=== PATIENT | female | born 1945 | race African-American/Black ===

== ENCOUNTER 2017-07-29 07:58 | Outpatient (CLI) | payer MEDICARE, OTHER ==
[2017-07-29 10:48] LABS: Bilirubin Negative (Negative); Blood, Urine Negative (Negative); Clarity CLOUDY (Clear); Glucose, Urine (Dipstick) Negative (Negative); Leukocyte Moderate (Negative); Nitrite Positive (Negative); Protein, Urine (Dipstick) Trace mg/dL (Neg-Trace); Specific Gravity, Urine 1.016 (1.002-1.036)
[2017-07-29 10:52] LABS: Bacteria/HPF 2+ HPF (None Seen); Hyaline Casts/LPF 0-3 HYALINE CAST LPF (0-3 Hyaline); Pathc Cast-AUWi Flag 0.29 (0-2.49); RBC/HPF 0-3 HPF (0-3); Yeast-AUWi Flag 18.7 (0-25.0)
[2017-07-29 11:13] LABS: Renal Epithelial 0-3 HPF (0-3)
[2017-07-29 11:14] LABS: Crystals/HPF None Seen HPF (Negative); Oval Fat Bodies/HPF None Seen HPF (None Seen); Trichomonas/HPF None Seen HPF (None Seen)
--- NOTE | 2017-07-29 18:36 | RAD ---
TWO VIEWS OF THE CHEST 07/29/17 COMPARISON: 04/30/07 HISTORY: Preoperative patient. FINDINGS: Increased linear interstitial densities are noted, stable. Stable midline sternotomy wires and medias tinal clips. Stable multilead AICD. There is elevation of the left hemidiaphragm laterally with blunt ing of the left costophrenic angle and pleural thickening, stable. Lungs appear hyperinflated. No acu te findings. IMPRESSION: Numerous chronic findings as detailed above, including interstitial prominence and pulmonary hyperinf lation suggesting COPD in the proper clinical setting. POS: JOVANY
--- NOTE | 2017-07-30 07:21 | EKG ---
Test Reason : Blood Pressure : / mmHG Vent. Rate : 062 BPM Atrial Rate : 062 BPM P-R Int : 104 ms QRS Dur : 144 ms QT Int : 464 ms P-R-T Axes : -07 025 002 degrees QTc Int : 470 ms AV sequential or dual chamber electronic pacemaker Nonspecific ST-T changes Abnormal ECG When compared with ECG of 18-FEB-2015 11:49, Vent. rate has decreased BY [address] Stephanie WATERMAN ([id number]) on 07/30/2017 7:20:58 AM Referred By: ZENAIDA Confirmed By:DR. Stephanie WATERMAN
== END 2017-07-29 07:59 | disposition home or self-care (01) ==
LOC: LABBT 07:58
PROVIDERS: ATTEND Orthopaedic Surgery
DX: Z01.818 Encounter for other preprocedural examination (principal); M16.11 Unilateral primary osteoarthritis, right hip
CPT/HCPCS: 71046; 81001; 87081; 93005; 93010

== ENCOUNTER 2017-08-05 10:01 | Outpatient (CLI) | payer MEDICARE, MEDICAID ==
[2017-08-05 11:03] LABS: #Basophils 0.1 thou/uL (0.0-0.2); #Eosinphils 0.6 thou/uL (0.0-0.7); #Lymphocytes 2.9 thou/uL (1.20-3.40); #Monocytes 0.5 thou/uL (0.11-0.59); #Neutrophils 6.9 thou/uL (1.40-6.50); %Basophils 0.7 % (0.0-1.0); %Eosinophils 5.2 % (0.0-10.0); %Lymphocytes 26.6 % (21.0-51.0); %Monocytes 4.9 % (0.0-10.0); %Neutrophils 62.6 % (42.0-75.0); Hemoglobin 14.1 g/dL (12.0-16.0); Mean Corpuscular HGB CONC 32.9 g/dL (32.0-36.0); Mean Corpuscular Hemoglobin 32.9 pg (27.0-31.0); Mean Corpuscular Volume 99.9 fl (81.0-99.0); Mean Platelet Volume 7.9 fL (7.4-10.4); Platelet Count 187 thou/uL (130-400); RBC Distribution Width 13.6 % (11.5-14.5); Red Blood Cell (RBC) Count 4.28 mill/uL (4.20-5.40)
[2017-08-05 11:12] LABS: Anion Gap 9 mmol/L (10-20); BUN (Urea Nitrogen) 14 mg/dL (9.8-20.1); Calc. Creatinine Clearance 0 mL/min (70-130); Calcium 9.2 mg/dL (7.8-10.44); Carbon Dioxide 28 mmol/L (23-31); Chloride 107 mmol/L (98-107); Estimated GFR-MDRD 70; Glucose 103 mg/dL (80-115); Sodium 140 mmol/L (136-145)
[2017-08-05 11:16] LABS: Prothrombin Time 13.7 SEC (12.0-14.7)
== END 2017-08-05 10:02 | disposition home or self-care (01) ==
LOC: LABBT 10:01
PROVIDERS: ATTEND Orthopaedic Surgery
DX: Z01.812 Encounter for preprocedural laboratory examination (principal); M16.11 Unilateral primary osteoarthritis, right hip
CPT/HCPCS: 80048; 85025; 85610; 85730; 86850; 86900; 86901

== ENCOUNTER 2017-12-23 12:07 | Outpatient (CLI) | payer MEDICARE, OTHER ==
[2017-12-23 13:16] LABS: #Basophils 0.1 thou/uL (0.0-0.2); #Eosinphils 1.7 thou/uL (0.0-0.7); #Lymphocytes 2.9 thou/uL (1.20-3.40); #Monocytes 0.6 thou/uL (0.11-0.59); #Neutrophils 6.6 thou/uL (1.40-6.50); %Basophils 0.7 % (0.0-1.0); %Eosinophils 14.5 % (0.0-10.0); %Lymphocytes 24.7 % (21.0-51.0); %Monocytes 4.6 % (0.0-10.0); %Neutrophils 55.6 % (42.0-75.0); Hemoglobin 13.6 g/dL (12.0-16.0); Mean Corpuscular HGB CONC 31.6 g/dL (32.0-36.0); Mean Platelet Volume 7.2 fL (7.4-10.4); Platelet Count 193 thou/uL (130-400); RBC Distribution Width 12.9 % (11.5-14.5); Red Blood Cell (RBC) Count 4.25 mill/uL (4.20-5.40); White Blood Cell (WBC) Count 11.9 thou/uL (4.8-10.8)
[2017-12-23 13:35] LABS: ALT (SGPT) 7 U/L (8-55); AST (SGOT) 12 U/L (5-34); Albumin 4.1 g/dL (3.4-4.8); Alkaline Phosphatase 85 U/L (40-150); Anion Gap 9 mmol/L (10-20); BUN (Urea Nitrogen) 12 mg/dL (9.8-20.1); Bilirubin, Direct 0.3 mg/dL (0.1-0.3); Bilirubin, Total 0.7 mg/dL (0.2-1.2); Calc. Creatinine Clearance 0 mL/min (70-130); Calcium 9.5 mg/dL (7.8-10.44); Carbon Dioxide 26 mmol/L (23-31); Chloride 110 mmol/L (98-107); Estimated GFR-MDRD 64; Globulin 3.2 g/dL (2.4-3.5); Glucose 121 mg/dL (80-115); Potassium 3.9 mmol/L (3.5-5.1); Protein, Total 7.3 g/dL (6.0-8.3); Sodium 141 mmol/L (136-145)
--- NOTE | 2017-12-23 15:27 | EKG ---
Test Reason : Blood Pressure : / mmHG Vent. Rate : 070 BPM Atrial Rate : 070 BPM P-R Int : 100 ms QRS Dur : 140 ms QT Int : 432 ms P-R-T Axes : 077 061 078 degrees QTc Int : 466 ms Electronic ventricular pacemaker When compared with ECG of 29-JUL-2017 09:14, Vent. rate has increased BY 8 BPM Confirmed by MAURO PINA, DR. Lazo ([id number]) on 12/23/2017 3:26:51 PM Referred By: HUONG Confirmed By:DR. Violet WADE MD
== END 2017-12-23 12:08 | disposition home or self-care (01) ==
LOC: LABBT 12:07
PROVIDERS: ATTEND Internal Medicine Cardiovascular Disease
DX: Z01.818 Encounter for other preprocedural examination (principal); I25.10 Atherosclerotic heart disease of native coronary artery without angina pectoris
CPT/HCPCS: 80053; 80076; 85025; 93005; 93010

== ENCOUNTER 2017-12-28 06:48 | Inpatient (IN) | payer MEDICARE, MEDICAID ==
[2017-12-28] MEDS ORDERED: Diazepam 5 MG TAB ONE (07:34)
[2017-12-28] MEDS ORDERED: Lidocaine 1% (PF) 30 ML VIAL ONE (08:25)
[2017-12-28] MEDS ORDERED: Midazolam HCl 2 mg/2 ml Vial ONE (08:46)
[2017-12-28] MEDS ORDERED: Fentanyl 100 MCG/2 ML VIAL ONE (08:46)
[2017-12-28] MEDS ORDERED: Iopamidol 370 76% 100 ML VIAL ONE (11:01)
[2017-12-28] MEDS ORDERED: Nitroglycerin 0.4 MG TAB (25 Tab Bottle) SL PRN (11:30)
[2017-12-28] MEDS ORDERED: Sodium Chloride 0.9% 1,000 ML IV SCH (11:30)
[2017-12-28] MEDS ORDERED: traMADol HCl 50 MG TAB PO PRN (11:30)
--- NOTE | 2017-12-28 12:01 | CON ---
DATE OF CONSULTATION: 12/28/2017 HISTORY OF PRESENT ILLNESS: This is a 71-year-old female that underwent coronary bypass grafting in 2000 for coronary artery disease with grafts to the right posterior lateral with saphenous vein, obtu se marginal with saphenous vein, ramus with radial and LAD with PETE. Postoperative course was compl icated by bilateral pneumothoraces and prolonged air leaks, ultimately being discharged on about pos toperative day 15. She has done well over the years and been followed along, although recently had a n abnormal PET scan in preparation for right hip surgery. The patient denies any significant dyspnea on exertion, although is not very active due to her hip problems. She denies any chest pain, althou gh occasionally gets heartburn. Cardiac catheterization today showed an occluded or atretic PETE jesica t was barely patent with no significant filling of the LAD system. The LAD had a high grade stenosis at its takeoff from the distal left main as well as significant disease at the takeoff of a diagonal . The diagonal was not large enough to graft. Circumflex system was fed by the radial and saphenous vein grafts with the radial feeding a small artery and the saphenous vein feeding a very small obtus e marginal. Right system was felt to be at the vein graft. LV systolic function appeared to be rela tively normal. PAST SURGICAL HISTORY: Otherwise placement of a defibrillator about 7-8 years ago by her account. S he has had a left hip replacement as well as cataract surgery. SOCIAL HISTORY: She has not smoked since 2000. PAST MEDICAL HISTORY: Otherwise includes diabetes, hypertension and dyslipidemia. MEDICATIONS: Inhalers and p.r.n. oxygen at home as well as aspirin 1 a day, lisinopril b.i.d., Lasix 20 mg a day, Crestor 20 a day, Coreg 6.25 b.i.d. and hydralazine 25 t.i.d. as well as isosorbide 30 a day. PHYSICAL EXAMINATION: GENERAL: She is an alert, cooperative lady, height 62 inches, weight 139 pounds. NECK: No carotid bruits. LUNGS: No wheezes. CARDIAC: Distant heart sounds, no murmurs. ABDOMEN: Soft, nontender. EXTREMITIES: She has a palpable pedal pulse in both feet with no peripheral edema. PLAN: At this time with a lean toward percutaneous intervention for her LAD disease given the fact t hat she has 3 patent grafts, although the distal vessels are rather poor.
[2017-12-28] MEDS ORDERED: Ipratropium Bromide 2.5 ml Neb NEB SCH (13:00)
[2017-12-28 13:11] VITALS: BMI 26.1
--- NOTE | 2017-12-28 14:20 | CON ---
DATE OF CONSULTATION: 12/28/2017 HISTORY OF PRESENT ILLNESS: The patient is a 72-year-old woman with a history of coronary artery disease who presented with increasing weakness. The patient has a long history of coronary artery disease. In 2001 she underwent a cardiac catheterization. The patient subsequently was found to have severe 3-vessel coronary artery disease. The patient underwent coronary bypass surgery x4. A PETE was placed to the LAD, a saphenous vein graft to the posterior descending artery and to obtuse marginal branch. The patient also has a history of a cardiomyopathy. She has had placement of a biventricular AICD. The patient was in her usual state of health when she started feeling weak. She underwent a cardiac PET scan which revealed severe ischemia. The patient was admitted for further evaluation. The patient denies having any chest discomfort. PAST MEDICAL HISTORY: 1. Coronary artery disease. 2. Cardiomyopathy. 3. Hypertension. 4. Diabetes mellitus. 5. Hyperlipidemia. PAST SURGICAL HISTORY: Coronary bypass surgery, tubal ligation, and cataract surgery. ALLERGIES: CODEINE. MEDICATIONS: Hydralazine 25 t.i.d., Coreg 6.25 b.i.d., Crestor 20 at bedtime, Lasix 20 daily, lisinopril 10 b.i.d., aspirin 81 daily, and Imdur 30 q.a.m. PHYSICAL EXAMINATION: GENERAL: This is a well-developed woman in no acute distress. VITAL SIGNS: Blood pressure was 164/69. NECK: Showed no jugular distention, no carotid bruits. LUNGS: Clear to auscultation. HEART: Regular rate and rhythm, normal S1, S2, 1/6 systolic murmur. ABDOMEN: Nondistended. EXTREMITIES: Showed no edema. VASCULAR: Radial pulses 2+. LABORATORY DATA: Her white blood cell count was 11.9, hemoglobin 13.6, hematocrit 30.0, her platelets 193. Sodium 141, potassium 3.9, chloride 110, bicarbonate 26, BUN 12, creatinine 1.0, glucose 124. EKG revealed an electronic ventricular pacemaker. IMPRESSION: 1. Severe coronary artery disease. 2. History of coronary bypass surgery. 3. Ischemic cardiomyopathy. 4. History of AICD. 5. Hypertension. 6. Dyslipidemia. 7. Diabetes mellitus. 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 The patient is being admitted for possible transfer for a rotablader procedure or coronary bypass graft surgery. PLAN: 1. Admit to telemetry. 2. Transfer for possible high risk coronary intervention. RENE
[2017-12-28] MEDS ORDERED: hydrALAZINE 25 MG TAB PO SCH (15:00)
[2017-12-28 15:41] VITALS: BP 141/69; TEMP 98
[2017-12-28] MEDS ORDERED: Lisinopril 10 MG TAB PO SCH (21:00)
[2017-12-28] MEDS ORDERED: Rosuvastatin 20 MG TAB PO SCH (21:00)
[2017-12-28] MEDS ORDERED: Carvedilol 6.25 MG TAB PO SCH (21:00)
[2017-12-29] MEDS ORDERED: Fish Oil 1,000 MG CAP PO SCH (09:00)
[2017-12-29] MEDS ORDERED: Furosemide 20 MG TAB PO SCH (09:00)
== END 2017-12-28 19:20 | disposition short-term general hospital (02) | DRG 287 ==
LOC: CCL 06:48 → 2NO 12:12
PROVIDERS: ADMIT Internal Medicine Cardiovascular Disease; ATTEND Internal Medicine Cardiovascular Disease
PROC: 4A023N7 Measurement of Cardiac Sampling and Pressure, Left Heart, Percutaneous Approach (ICD-10-PCS; principal; 2017-12-28)
PROC: B2111ZZ Fluoroscopy of Multiple Coronary Arteries using Low Osmolar Contrast (ICD-10-PCS; 2017-12-28)
DX: I25.10 Atherosclerotic heart disease of native coronary artery without angina pectoris (principal); I25.5 Ischemic cardiomyopathy; I10 Essential (primary) hypertension; Z95.1 Presence of aortocoronary bypass graft; E78.5 Hyperlipidemia, unspecified; E11.9 Type 2 diabetes mellitus without complications
CPT/HCPCS: 93459; 94640; 99152; C1769; J1644; J2001; J2250; J3010; J7644

== ENCOUNTER 2018-07-12 09:08 | Outpatient (CLI) | payer MEDICARE, MEDICAID ==
--- NOTE | 2018-07-12 09:26 | RAD ---
Exam: Chest 2 views HISTORY:Dyspnea Comparison: 07/29/2016 FINDINGS: Lungs: Stable chronic left basilar density Cardiac silhouette:Stable postsurgical change. Left-sided AICD remains in place Pulmonary vessels: Mild prominence, similar in appearance Pleural Spaces: Pleural-based density at the inferior left chest with elevation left hemidiaphragm pe rsists Pneumothorax: None Osseous abnormalities: None of acuity. IMPRESSION: Stable chest
== END 2018-07-12 09:09 | disposition home or self-care (01) ==
LOC: RAD 09:08
PROVIDERS: ATTEND Internal Medicine Critical Care Medicine
DX: R06.00 Dyspnea, unspecified (principal)
CPT/HCPCS: 71046

== ENCOUNTER 2020-04-15 15:13 | Emergency (ER) | payer MEDICARE, OTHER ==
[~2020-04-15 15:13] MED LIST: Iopamidol-370 76% 500 ML 1 ML ONE
[2020-04-15] MEDS ORDERED: Labetalol HCl 100 MG/20 ML VIAL ONE (15:53)
[2020-04-15 15:59] LABS: #Eosinphils 0.1 thou/uL (0.0-0.7); #Lymphocytes 1.6 thou/uL (1.20-3.40); #Monocytes 0.3 thou/uL (0.11-0.59); #Neutrophils 6.9 thou/uL (1.40-6.50); %Basophils 0.4 % (0.0-1.0); %Eosinophils 1.3 % (0.0-10.0); %Lymphocytes 18.3 % (21.0-51.0); %Monocytes 3.1 % (0.0-10.0); Hemoglobin 13.9 g/dL (12.0-16.0); Mean Corpuscular HGB CONC 32.5 g/dL (32.0-36.0); Mean Corpuscular Hemoglobin 33.1 pg (27.0-31.0); Mean Platelet Volume 7.9 fL (7.4-10.4); Platelet Count 189 thou/uL (130-400); Red Blood Cell (RBC) Count 4.21 mill/uL (4.20-5.40); White Blood Cell (WBC) Count 8.9 thou/uL (4.8-10.8)
[2020-04-15 16:18] LABS: ALT (SGPT) 13 U/L (8-55); AST (SGOT) 18 U/L (5-34); Albumin 4.2 g/dL (3.4-4.8); Alkaline Phosphatase 73 U/L (40-110); Anion Gap 14 mmol/L (10-20); BUN (Urea Nitrogen) 10 mg/dL (9.8-20.1); Bilirubin, Total 0.5 mg/dL (0.2-1.2); Calc. Creatinine Clearance 0 mL/min (70-130); Calcium 9.3 mg/dL (7.8-10.44); Carbon Dioxide 23 mmol/L (23-31); Chloride 108 mmol/L (98-107); Globulin 3.4 g/dL (2.4-3.5); Glucose 146 mg/dL (83-110); Lipase 77 U/L (8-78); Protein, Total 7.6 g/dL (6.0-8.3); Sodium 141 mmol/L (136-145)
--- NOTE | 2020-04-15 17:00 | CT ---
CT abdomen and pelvis with IV contrast HISTORY: Abdomen pain. Nausea vomiting. FINDINGS: Calcified granulomata in mild nonspecific interstitial thickening noted at the lung bases. A 2.4 cm low-density cystic lesion noted at the superior margin of the spleen. Possibly hemangioma. A 1.2 cm cyst is present within the posterior segment right liver lobe. A 6.1 cm partially exophytic cyst projects superiorly from the left renal cortex. Smaller cysts involve the cortex of each kidney. There is minimal distention of the pancreatic duct. At the posterior aspect of the pancreatic body is a subtle, somewhat lobular hypodense area with the appearance of a very subtle mass. It is 1.8 cm x 1.6 cm x 1.3 cm greatest diameters. Hyperdense stones are present within the dependent portion of the gallbladder lumen. Prominent calcification within the arterial structures. Very small amount of fluid within the dependent portion of the pelvis. Cause is not evident. Very lar ge amount of stool within the right colon. Appendix is not visualized. Left hip prosthesis. Prominent degenerative changes right hip and lumbar spine. IMPRESSION : Subtle low-density lesion of the pancreatic body. Further evaluation warranted. With a pacemaker, pat ient would be unable to undergo an MRI. Please consider short-term follow-up outpatient CT pancreas without and with IV contrast for better characterization. Constipation. No evidence of bowel obstruction. Atherosclerosis.
== END 2020-04-15 17:30 | disposition home or self-care (01) ==
LOC: ERS 15:13
DX: K86.89 Other specified diseases of pancreas (principal); R11.2 Nausea with vomiting, unspecified; E11.9 Type 2 diabetes mellitus without complications; I11.0 Hypertensive heart disease with heart failure; I50.9 Heart failure, unspecified; E78.5 Hyperlipidemia, unspecified; E78.00 Pure hypercholesterolemia, unspecified; J45.909 Unspecified asthma, uncomplicated; Z79.899 Other long term (current) drug therapy; Z86.73 Personal history of transient ischemic attack (TIA), and cerebral infarction without residual deficits
CPT/HCPCS: 74177; 80053; 83690; 85025; 93005; 96374; Q9967

== ENCOUNTER 2020-12-02 14:19 | Emergency (ER) | payer MEDICARE, OTHER ==
[2020-12-02] MEDS ORDERED: Mag-Al 1200 mg/1200 mg/30 ML UDCUP ONE (14:58)
[2020-12-02] MEDS ORDERED: Famotidine/PF 20 mg/2ml Vial ONE (14:58)
[2020-12-02] MEDS ORDERED: Lidocaine Viscous Sol 2% 15 ml UD Cup ONE (14:58)
[2020-12-02] MEDS ORDERED: Ondansetron PF 4 MG/2 ML Vial ONE (15:04)
[2020-12-02 15:29] LABS: #Basophils 0.1 thou/uL (0.0-0.2); #Eosinphils 0.2 thou/uL (0.0-0.7); #Lymphocytes 2.6 thou/uL (1.20-3.40); #Monocytes 0.5 thou/uL (0.11-0.59); #Neutrophils 7.5 thou/uL (1.40-6.50); %Basophils 0.6 % (0.0-1.0); %Eosinophils 1.8 % (0.0-10.0); %Lymphocytes 23.7 % (21.0-51.0); %Monocytes 4.4 % (0.0-10.0); %Neutrophils 69.5 % (42.0-75.0); Hemoglobin 13.6 g/dL (12.0-16.0); Mean Corpuscular HGB CONC 33.4 g/dL (32.0-36.0); Mean Corpuscular Hemoglobin 33.9 pg (27.0-31.0); Mean Platelet Volume 8.1 fL (7.4-10.4); Platelet Count 161 thou/uL (130-400); RBC Distribution Width 13.6 % (11.5-14.5); White Blood Cell (WBC) Count 10.8 thou/uL (4.8-10.8)
[2020-12-02 15:52] LABS: ALT (SGPT) 10 U/L (8-55); AST (SGOT) 15 U/L (5-34); Albumin 3.9 g/dL (3.4-4.8); Alkaline Phosphatase 69 U/L (40-110); Anion Gap 12 mmol/L (10-20); BUN (Urea Nitrogen) 13 mg/dL (9.8-20.1); Bilirubin, Total 0.5 mg/dL (0.2-1.2); Calc. Creatinine Clearance 0 mL/min (70-130); Calcium 9.7 mg/dL (7.8-10.44); Carbon Dioxide 23 mmol/L (23-31); Chloride 109 mmol/L (98-107); Globulin 3.1 g/dL (2.4-3.5); Glucose 142 mg/dL (83-110); Lipase 192 U/L (8-78); Potassium 3.8 mmol/L (3.5-5.1); Sodium 140 mmol/L (136-145)
[2020-12-02] MEDS ORDERED: Fentanyl 100 MCG/2 ML VIAL ONE (16:13)
== END 2020-12-02 18:00 | disposition home or self-care (01) ==
LOC: ERS 14:19
DX: K27.9 Peptic ulcer, site unspecified, unspecified as acute or chronic, without hemorrhage or perforation (principal); K86.2 Cyst of pancreas; I11.0 Hypertensive heart disease with heart failure; I50.9 Heart failure, unspecified; E11.9 Type 2 diabetes mellitus without complications; E78.00 Pure hypercholesterolemia, unspecified; E78.5 Hyperlipidemia, unspecified; J45.909 Unspecified asthma, uncomplicated; Z86.73 Personal history of transient ischemic attack (TIA), and cerebral infarction without residual deficits; Z79.899 Other long term (current) drug therapy
CPT/HCPCS: 36415; 71045; 74177; 80053; 83605; 83690; 84484; 85025; 93005; 96374; 96375; J2405; J3010; Q9967; S0028

== ENCOUNTER 2021-01-19 18:36 | Emergency (ER) | payer MEDICARE, OTHER ==
[2021-01-19] MEDS ORDERED: methylPREDNISolone Sod Succ/PF 125 MG/2 ML VIAL ONE (20:42)
== END 2021-01-19 23:00 | disposition home or self-care (01) ==
LOC: ERS 18:36
DX: J45.901 Unspecified asthma with (acute) exacerbation (principal); E78.5 Hyperlipidemia, unspecified; I11.0 Hypertensive heart disease with heart failure; I50.9 Heart failure, unspecified; E11.9 Type 2 diabetes mellitus without complications; Z79.899 Other long term (current) drug therapy
CPT/HCPCS: 71045; 94640; 96372; J2930; J7620

== ENCOUNTER 2021-02-25 06:09 | Emergency (ER) | payer MEDICARE, OTHER ==
[2021-02-25] MEDS ORDERED: Albuterol 200 PUFF (6.7GM INHALER) ONE (06:22)
[2021-02-25 07:05] LABS: #Basophils 0.1 thou/uL (0.0-0.2); #Eosinphils 0.8 thou/uL (0.0-0.7); #Monocytes 0.6 thou/uL (0.11-0.59); #Neutrophils 8.5 thou/uL (1.40-6.50); %Basophils 0.7 % (0.0-1.0); %Eosinophils 6.3 % (0.0-10.0); %Lymphocytes 23.2 % (21.0-51.0); %Monocytes 4.8 % (0.0-10.0); Hemoglobin 13.9 g/dL (12.0-16.0); Mean Corpuscular HGB CONC 32.7 g/dL (32.0-36.0); Mean Corpuscular Hemoglobin 33.6 pg (27.0-31.0); Mean Platelet Volume 7.5 fL (7.4-10.4); Platelet Count 179 thou/uL (130-400); RBC Distribution Width 13.5 % (11.5-14.5); Red Blood Cell (RBC) Count 4.14 mill/uL (4.20-5.40); White Blood Cell (WBC) Count 13.1 thou/uL (4.8-10.8)
[2021-02-25 07:29] LABS: ALT (SGPT) 9 U/L (8-55); AST (SGOT) 16 U/L (5-34); Albumin 3.7 g/dL (3.4-4.8); Alkaline Phosphatase 67 U/L (40-110); Anion Gap 14 mmol/L (10-20); BUN (Urea Nitrogen) 11 mg/dL (9.8-20.1); Bilirubin, Total 0.5 mg/dL (0.2-1.2); Calc. Creatinine Clearance 0 mL/min (70-130); Calcium 8.8 mg/dL (7.8-10.44); Carbon Dioxide 20 mmol/L (23-31); Chloride 111 mmol/L (98-107); Globulin 2.7 g/dL (2.4-3.5); Glucose 108 mg/dL (83-110); Potassium 3.7 mmol/L (3.5-5.1); Protein, Total 6.4 g/dL (5.8-8.1); Sodium 141 mmol/L (136-145)
== END 2021-02-25 08:04 | disposition home or self-care (01) ==
LOC: ERS 06:09
DX: J45.901 Unspecified asthma with (acute) exacerbation (principal); I11.0 Hypertensive heart disease with heart failure; I50.9 Heart failure, unspecified; Z86.73 Personal history of transient ischemic attack (TIA), and cerebral infarction without residual deficits; E11.9 Type 2 diabetes mellitus without complications; E78.5 Hyperlipidemia, unspecified; Z79.899 Other long term (current) drug therapy
CPT/HCPCS: 36415; 71045; 80053; 83880; 84484; 85025; 93005

== ENCOUNTER 2021-04-18 09:24 | Outpatient (CLI) | payer MEDICARE, OTHER | END 2021-04-18 09:25 | disposition home or self-care (01) | LOC: RAD 09:24 | PROVIDERS: ATTEND Internal Medicine Critical Care Medicine | DX: R06.00 Dyspnea, unspecified (principal) | CPT/HCPCS: 71046 ==

== ENCOUNTER 2022-02-05 10:04 | Outpatient (CLI) | payer MEDICARE, OTHER | END 2022-02-05 10:05 | disposition home or self-care (01) | LOC: RAD 10:04 | PROVIDERS: ATTEND Internal Medicine Critical Care Medicine | DX: R06.00 Dyspnea, unspecified (principal) | CPT/HCPCS: 71046 ==

== ENCOUNTER 2022-02-11 01:45 | Inpatient (IN) | payer OTHER ==
[2022-02-11] MEDS ORDERED: Magnesium 2 GM/50 ML BAG (IN WATER) ONE (02:03)
[2022-02-11 02:31] LABS: #Eosinphils 0.1 thou/uL (0.0-0.7); #Lymphocytes 2.1 thou/uL (1.20-3.40); #Monocytes 0.4 thou/uL (0.11-0.59); #Neutrophils 8.4 thou/uL (1.40-6.50); %Basophils 0.4 % (0.0-1.0); %Monocytes 3.7 % (0.0-10.0); %Neutrophils 75.9 % (42.0-75.0); Hemoglobin 14.2 g/dL (12.0-16.0); Mean Corpuscular HGB CONC 32.6 g/dL (32.0-36.0); Mean Corpuscular Hemoglobin 33.7 pg (27.0-31.0); Mean Platelet Volume 8.9 fL (7.4-10.4); Platelet Count 153 10x3/uL (130-400); RBC Distribution Width 13.4 % (11.5-14.5); Red Blood Cell (RBC) Count 4.22 mill/uL (4.20-5.40); White Blood Cell (WBC) Count 11.1 10x3/uL (4.8-10.8)
[2022-02-11 02:50] LABS: ALT (SGPT) 37 U/L (8-55); AST (SGOT) 58 U/L (5-34); Albumin 3.3 g/dL (3.4-4.8); Alkaline Phosphatase 53 U/L (40-110); Anion Gap 18 mmol/L (10-20); BUN (Urea Nitrogen) 30 mg/dL (9.8-20.1); Bilirubin, Total 1.2 mg/dL (0.2-1.2); Calc. Creatinine Clearance 0 mL/min (70-130); Calcium 8.2 mg/dL (7.8-10.44); Carbon Dioxide 21 mmol/L (23-31); Chloride 104 mmol/L (98-107); Estimated GFR 40; Globulin 2.8 g/dL (2.4-3.5); Glucose 148 mg/dL (83-110); Potassium 3.7 mmol/L (3.5-5.1); Protein, Total 6.1 g/dL (5.8-8.1); Sodium 139 mmol/L (136-145)
[2022-02-11] MEDS ORDERED: cefTRIAXone\\ROCEPHIN 1 GM VIAL ONE (02:54)
[2022-02-11] MEDS ORDERED: Ondansetron PF 4 MG/2 ML Vial IVP PRN (03:58)
[2022-02-11] MEDS ORDERED: Ondansetron ODT 4 MG TAB PO PRN (03:58)
[2022-02-11] MEDS ORDERED: Dextrose 5% in Water 1,000 ML IV PRN (03:58)
[2022-02-11] MEDS ORDERED: Dextrose 50% Abboject 50 ML SYRINGE SLOW IVP PRN (03:58)
[2022-02-11] MEDS ORDERED: Acetaminophen 325 MG TAB PO PRN (03:58)
[2022-02-11 05:15] VITALS: BMI 29.0
[2022-02-11 06:03] LABS: Magnesium 4.1 mg/dL (1.6-2.6)
[2022-02-11] MEDS: methylPREDNISolone Sod Succ 40 MG VIAL IVP SCH ×4 (06:18→23:12)
[2022-02-11] MEDS: Azithromycin 500 MG in Sodium Chloride 0.9% 250 ML 250 ML IVPB SCH (06:34)
[2022-02-11 07:41] LABS: SARS-CoV-2 NAA Rapid Test DETECTED (NotDetected)
[2022-02-11] MEDS ORDERED: FLU VACC QS2022-23(65YR UP)/PF 240 MCG/0.7 ML SYRINGE IM ONE (07:45)
[2022-02-11] MEDS ORDERED: Enoxaparin Sodium 30 MG/0.3 ML SYRINGE SC SCH (09:00)
[2022-02-11 11:02] LABS: Bacteria/HPF None Seen HPF (None Seen); Bilirubin Negative (Negative); Blood, Urine Trace (Negative); CAUTI Indications for Culture Immunosuppressed; Clarity Clear (Clear); Glucose, Urine (Dipstick) Normal (Negative); Ketone, Urine 10 mg/dL (Negative); Leukocyte 25 Leu/uL (Negative); Nitrite Negative (Negative); Protein, Urine (Dipstick) 100 mg/dL (Neg-Trace); RBC/HPF 0-3 HPF (0-3); Specific Gravity, Urine 1.034 (1.002-1.036); Urobilinogen Normal mg/dL (Less than 2)
[2022-02-11 11:03] LABS: Urine Culture Reflex Yes Yes
[2022-02-11 11:32] LABS: Legionella Urinary Ag Negative (Negative); Strep pneumo Urine Ag NEGATIVE (NEGATIVE)
[2022-02-11] MEDS: Ipratropium/Albuterol Sulfate 4 GM AER IH SCH ×4 (11:40→23:15)
[2022-02-11] MEDS: HumaLOG 300 UNITS/3 ML VIAL SC PRN ×2 (17:57→20:55)
[2022-02-11] MEDS ORDERED: REMDESIVIR 200 MG in Sodium Chloride 0.9% 250 ML 210 ML IV SCH (18:00)
[2022-02-11] MEDS: Rosuvastatin 20 MG TAB PO SCH (20:52)
[2022-02-11] MEDS: Carvedilol 6.25 MG TAB PO SCH (20:53)
[2022-02-11] MEDS: Lisinopril 10 MG TAB PO SCH (20:53)
[2022-02-11] MEDS: hydrALAZINE 25 MG TAB PO SCH (20:53)
[2022-02-12] MEDS: cefTRIAXone\\ROCEPHIN 1 GM in Sodium Chloride 0.9% 100 ML IVPB SCH (03:34)
[2022-02-12] MEDS: Ipratropium/Albuterol Sulfate 4 GM AER IH SCH ×6 (03:35→23:42)
[2022-02-12] MEDS: Azithromycin 500 MG in Sodium Chloride 0.9% 250 ML 250 ML IVPB SCH (06:16)
[2022-02-12] MEDS: methylPREDNISolone Sod Succ 40 MG VIAL IVP SCH ×2 (06:16→11:29)
[2022-02-12] MEDS: HumaLOG 300 UNITS/3 ML VIAL SC PRN ×2 (06:27→12:46)
[2022-02-12 07:16] LABS: #Lymphocytes 1.7 thou/uL (1.20-3.40); #Monocytes 0.5 thou/uL (0.11-0.59); #Neutrophils 10.9 thou/uL (1.40-6.50); %Lymphocytes 12.6 % (21.0-51.0); %Neutrophils 83.4 % (42.0-75.0); Hemoglobin 13.8 g/dL (12.0-16.0); Mean Corpuscular Hemoglobin 33.2 pg (27.0-31.0); Mean Platelet Volume 8.4 fL (7.4-10.4); Platelet Count 188 10x3/uL (130-400); RBC Distribution Width 13.1 % (11.5-14.5); Red Blood Cell (RBC) Count 4.17 mill/uL (4.20-5.40)
[2022-02-12 07:37] LABS: ALT (SGPT) 30 U/L (8-55); AST (SGOT) 27 U/L (5-34); Albumin 3.1 g/dL (3.4-4.8); Alkaline Phosphatase 51 U/L (40-110); Anion Gap 11 mmol/L (10-20); BUN (Urea Nitrogen) 24 mg/dL (9.8-20.1); Bilirubin, Total 0.4 mg/dL (0.2-1.2); Calc. Creatinine Clearance 51 mL/min (70-130); Calcium 8.2 mg/dL (7.8-10.44); Carbon Dioxide 25 mmol/L (23-31); Chloride 108 mmol/L (98-107); Estimated GFR 53; Glucose 199 mg/dL (83-110); Magnesium 2.5 mg/dL (1.6-2.6); Potassium 3.7 mmol/L (3.5-5.1); Protein, Total 6.1 g/dL (5.8-8.1); Sodium 140 mmol/L (136-145)
[2022-02-12] MEDS: Enoxaparin Sodium 40 MG/0.4 ML SYRINGE SC SCH (08:50)
[2022-02-12] MEDS: Furosemide 20 MG TAB PO SCH (08:51)
[2022-02-12] MEDS: hydrALAZINE 25 MG TAB PO SCH ×3 (08:51→19:56)
[2022-02-12] MEDS: Carvedilol 6.25 MG TAB PO SCH ×2 (08:51→19:56)
[2022-02-12] MEDS: Lisinopril 10 MG TAB PO SCH ×2 (08:52→19:56)
[2022-02-12] MEDS: REMDESIVIR 100 MG in Sodium Chloride 0.9% 250 ML 230 ML IV SCH (17:43)
[2022-02-12] MEDS: Rosuvastatin 20 MG TAB PO SCH (19:56)
[2022-02-13] MEDS: cefTRIAXone\\ROCEPHIN 1 GM in Sodium Chloride 0.9% 100 ML IVPB SCH (03:57)
[2022-02-13] MEDS: Ipratropium/Albuterol Sulfate 4 GM AER IH SCH ×6 (04:01→21:43)
[2022-02-13] MEDS: Azithromycin 500 MG in Sodium Chloride 0.9% 250 ML 250 ML IVPB SCH (05:16)
[2022-02-13] MEDS: Furosemide 20 MG TAB PO SCH (08:38)
[2022-02-13] MEDS: methylPREDNISolone Sod Succ 40 MG VIAL IVP SCH (08:38)
[2022-02-13] MEDS: Lisinopril 10 MG TAB PO SCH ×2 (08:38→19:46)
[2022-02-13] MEDS: Carvedilol 6.25 MG TAB PO SCH ×2 (08:38→19:46)
[2022-02-13] MEDS: hydrALAZINE 25 MG TAB PO SCH ×3 (08:38→19:46)
[2022-02-13] MEDS: Enoxaparin Sodium 40 MG/0.4 ML SYRINGE SC SCH (08:38)
[2022-02-13] MEDS: REMDESIVIR 100 MG in Sodium Chloride 0.9% 250 ML 230 ML IV SCH (17:03)
[2022-02-13] MEDS: HumaLOG 300 UNITS/3 ML VIAL SC PRN (19:41)
[2022-02-13] MEDS: Rosuvastatin 20 MG TAB PO SCH (19:46)
[2022-02-13] MEDS: Benzonatate 100 MG CAP PO PRN (19:54)
[2022-02-14] MEDS: Benzonatate 100 MG CAP PO PRN (02:26)
[2022-02-14] MEDS: cefTRIAXone\\ROCEPHIN 1 GM in Sodium Chloride 0.9% 100 ML IVPB SCH (02:27)
[2022-02-14] MEDS: Ipratropium/Albuterol Sulfate 4 GM AER IH SCH ×6 (02:53→22:38)
[2022-02-14] MEDS: Azithromycin 500 MG in Sodium Chloride 0.9% 250 ML 250 ML IVPB SCH (04:28)
[2022-02-14] MEDS: hydrALAZINE 25 MG TAB PO SCH ×4 (09:00→20:23)
[2022-02-14] MEDS: Enoxaparin Sodium 40 MG/0.4 ML SYRINGE SC SCH (09:00)
[2022-02-14] MEDS: Lisinopril 10 MG TAB PO SCH ×2 (09:00→20:15)
[2022-02-14] MEDS: Carvedilol 6.25 MG TAB PO SCH ×2 (09:00→20:16)
[2022-02-14] MEDS: Furosemide 20 MG TAB PO SCH (09:01)
[2022-02-14] MEDS: methylPREDNISolone Sod Succ 40 MG VIAL IVP SCH (09:01)
[2022-02-14] MEDS: HumaLOG 300 UNITS/3 ML VIAL SC PRN ×2 (11:37→16:16)
[2022-02-14] MEDS: REMDESIVIR 100 MG in Sodium Chloride 0.9% 250 ML 230 ML IV SCH (17:56)
[2022-02-14] MEDS: guaiFENesin ER 600 MG TAB PO SCH (20:14)
[2022-02-14] MEDS: Zinc Sulfate 220 MG CAP PO SCH (20:14)
[2022-02-14] MEDS: Rosuvastatin 20 MG TAB PO SCH (20:14)
[2022-02-14] MEDS: Cholecalciferol 1,000 UNITS (25 MCG) TAB PO SCH (20:15)
[2022-02-14] MEDS: Ascorbic Acid 500 mg Chewable Tablet PO SCH (20:15)
[2022-02-15] MEDS: Ipratropium/Albuterol Sulfate 4 GM AER IH SCH ×6 (02:49→20:25)
[2022-02-15] MEDS: cefTRIAXone\\ROCEPHIN 1 GM in Sodium Chloride 0.9% 100 ML IVPB SCH (03:01)
[2022-02-15] MEDS: Azithromycin 500 MG in Sodium Chloride 0.9% 250 ML 250 ML IVPB SCH (03:48)
[2022-02-15] MEDS: HumaLOG 300 UNITS/3 ML VIAL SC PRN ×4 (06:58→20:25)
[2022-02-15 08:01] LABS: #Eosinphils 0.1 thou/uL (0.0-0.7); #Monocytes 0.7 thou/uL (0.11-0.59); %Basophils 0.1 % (0.0-1.0); %Eosinophils 0.5 % (0.0-10.0); %Lymphocytes 20.6 % (21.0-51.0); %Monocytes 7.4 % (0.0-10.0); %Neutrophils 71.4 % (42.0-75.0); Hemoglobin 13.1 g/dL (12.0-16.0); Mean Corpuscular Hemoglobin 33.2 pg (27.0-31.0); Mean Platelet Volume 8.3 fL (7.4-10.4); Platelet Count 214 10x3/uL (130-400); Red Blood Cell (RBC) Count 3.93 mill/uL (4.20-5.40); White Blood Cell (WBC) Count 9.8 10x3/uL (4.8-10.8)
[2022-02-15 08:31] LABS: ALT (SGPT) 31 U/L (8-55); AST (SGOT) 20 U/L (5-34); Albumin 2.7 g/dL (3.4-4.8); Alkaline Phosphatase 55 U/L (40-110); Anion Gap 11 mmol/L (10-20); BUN (Urea Nitrogen) 25 mg/dL (9.8-20.1); Bilirubin, Total 0.5 mg/dL (0.2-1.2); CRP (Inflammatory) 1.96 mg/dL (= or < 0.5); Calc. Creatinine Clearance 58 mL/min (70-130); Calcium 8.3 mg/dL (7.8-10.44); Carbon Dioxide 28 mmol/L (23-31); Chloride 107 mmol/L (98-107); Estimated GFR 61; Globulin 2.6 g/dL (2.4-3.5); Glucose 120 mg/dL (83-110); Potassium 3.4 mmol/L (3.5-5.1); Protein, Total 5.3 g/dL (5.8-8.1); Sodium 143 mmol/L (136-145)
[2022-02-15] MEDS: guaiFENesin ER 600 MG TAB PO SCH ×2 (08:47→20:24)
[2022-02-15] MEDS: Enoxaparin Sodium 40 MG/0.4 ML SYRINGE SC SCH (08:47)
[2022-02-15] MEDS: Multivit, Therapeutic 1 TAB PO SCH (08:47)
[2022-02-15] MEDS: Furosemide 20 MG TAB PO SCH (08:47)
[2022-02-15] MEDS: Lisinopril 10 MG TAB PO SCH ×2 (08:47→20:24)
[2022-02-15] MEDS: methylPREDNISolone Sod Succ 40 MG VIAL IVP SCH (08:47)
[2022-02-15] MEDS: hydrALAZINE 25 MG TAB PO SCH ×3 (08:47→20:25)
[2022-02-15] MEDS: Carvedilol 6.25 MG TAB PO SCH ×2 (08:48→20:25)
[2022-02-15] MEDS: REMDESIVIR 100 MG in Sodium Chloride 0.9% 250 ML 230 ML IV SCH (17:24)
[2022-02-15] MEDS: Cholecalciferol 1,000 UNITS (25 MCG) TAB PO SCH (20:24)
[2022-02-15] MEDS: Ascorbic Acid 500 mg Chewable Tablet PO SCH (20:24)
[2022-02-15] MEDS: Zinc Sulfate 220 MG CAP PO SCH (20:25)
[2022-02-15] MEDS: Rosuvastatin 20 MG TAB PO SCH (20:25)
[2022-02-16] MEDS: Ipratropium/Albuterol Sulfate 4 GM AER IH SCH ×4 (03:49→15:26)
[2022-02-16] MEDS: cefTRIAXone\\ROCEPHIN 1 GM in Sodium Chloride 0.9% 100 ML IVPB SCH (03:55)
[2022-02-16] MEDS: Azithromycin 500 MG in Sodium Chloride 0.9% 250 ML 250 ML IVPB SCH (03:59)
[2022-02-16 07:42] LABS: #Eosinphils 0.1 thou/uL (0.0-0.7); #Lymphocytes 2.1 thou/uL (1.20-3.40); #Monocytes 0.7 thou/uL (0.11-0.59); #Neutrophils 7.3 thou/uL (1.40-6.50); %Basophils 0.4 % (0.0-1.0); %Eosinophils 0.7 % (0.0-10.0); %Lymphocytes 20.4 % (21.0-51.0); %Monocytes 6.8 % (0.0-10.0); %Neutrophils 71.7 % (42.0-75.0); Mean Corpuscular HGB CONC 33.1 g/dL (32.0-36.0); Mean Corpuscular Hemoglobin 34.5 pg (27.0-31.0); Mean Platelet Volume 7.9 fL (7.4-10.4); Platelet Count 233 10x3/uL (130-400); RBC Distribution Width 13.1 % (11.5-14.5); Red Blood Cell (RBC) Count 4.05 mill/uL (4.20-5.40); White Blood Cell (WBC) Count 10.1 10x3/uL (4.8-10.8)
[2022-02-16] MEDS ORDERED: Dexamethasone 4 MG TAB PO SCH (08:00)
[2022-02-16] MEDS: Enoxaparin Sodium 40 MG/0.4 ML SYRINGE SC SCH (08:01)
[2022-02-16] MEDS: Lisinopril 10 MG TAB PO SCH (08:02)
[2022-02-16] MEDS: guaiFENesin ER 600 MG TAB PO SCH (08:02)
[2022-02-16] MEDS: Furosemide 20 MG TAB PO SCH (08:02)
[2022-02-16] MEDS: Carvedilol 6.25 MG TAB PO SCH (08:02)
[2022-02-16] MEDS: Multivit, Therapeutic 1 TAB PO SCH (08:02)
[2022-02-16] MEDS: hydrALAZINE 25 MG TAB PO SCH ×2 (08:02→15:27)
[2022-02-16 08:07] LABS: Anion Gap 12 mmol/L (10-20); BUN (Urea Nitrogen) 24 mg/dL (9.8-20.1); Calc. Creatinine Clearance 60 mL/min (70-130); Calcium 8.6 mg/dL (7.8-10.44); Carbon Dioxide 29 mmol/L (23-31); Chloride 107 mmol/L (98-107); Estimated GFR 64; Glucose 112 mg/dL (83-110); Potassium 3.5 mmol/L (3.5-5.1); Sodium 144 mmol/L (136-145)
[2022-02-16] MEDS: HumaLOG 300 UNITS/3 ML VIAL SC PRN ×2 (13:08→16:48)
[2022-02-16 17:54] VITALS: BP 136/84; TEMP 97.7
== END 2022-02-16 18:54 | disposition home or self-care (01) | DRG 177 ==
LOC: ERS 01:45 → T4-B 03:35 → OBSVTOIN 15:41
PROVIDERS: ADMIT Internal Medicine; ATTEND Internal Medicine
PROC: XW033E5 Introduction of Remdesivir Anti-infective into Peripheral Vein, Percutaneous Approach, New Technology Group 5 (ICD-10-PCS; principal; 2022-02-11)
PROC: 8E0ZXY6 Isolation (ICD-10-PCS; 2022-02-11)
DX: U07.1 COVID-19 (principal); J12.82 Pneumonia due to coronavirus disease 2019; J96.01 Acute respiratory failure with hypoxia; J15.6 Pneumonia due to other Gram-negative bacteria; J44.1 Chronic obstructive pulmonary disease with (acute) exacerbation; I13.0 Hypertensive heart and chronic kidney disease with heart failure and stage 1 through stage 4 chronic kidney disease, or unspecified chronic kidney disease; I25.810 Atherosclerosis of coronary artery bypass graft(s) without angina pectoris; J44.0 Chronic obstructive pulmonary disease with (acute) lower respiratory infection; N17.9 Acute kidney failure, unspecified; I50.9 Heart failure, unspecified; E78.5 Hyperlipidemia, unspecified; N18.30 Chronic kidney disease, stage 3 unspecified; E11.22 Type 2 diabetes mellitus with diabetic chronic kidney disease; Z88.5 Allergy status to narcotic agent; Z79.82 Long term (current) use of aspirin; Z79.899 Other long term (current) drug therapy; Z95.5 Presence of coronary angioplasty implant and graft; Z95.1 Presence of aortocoronary bypass graft; Z98.51 Tubal ligation status; Z90.49 Acquired absence of other specified parts of digestive tract; Z87.891 Personal history of nicotine dependence; Z86.73 Personal history of transient ischemic attack (TIA), and cerebral infarction without residual deficits
CPT/HCPCS: 36415; 36416; 71045; 80048; 80053; 81001; 83735; 83880; 84484; 85025; 86140; 87086; 87449; 87899; 93005; 94640; 96372; 96375; 96376; G0378; J0248; J0456; J0696; J1650; J1815; J2920; J3475; J3490; J3535; J7050; J7620; J8540

== ENCOUNTER 2022-04-30 10:31 | Outpatient (CLI) | payer OTHER | END 2022-04-30 10:32 | disposition home or self-care (01) | LOC: RAD 10:31 | PROVIDERS: ATTEND Internal Medicine Critical Care Medicine | DX: R06.00 Dyspnea, unspecified (principal); R91.8 Other nonspecific abnormal finding of lung field | CPT/HCPCS: 71046 ==

== ENCOUNTER 2022-12-01 00:03 | Inpatient (IN) | payer OTHER ==
[2022-12-01] MEDS ORDERED: Glucagon 1 MG/ML KIT IM PRN (05:26)
[2022-12-01] MEDS ORDERED: Ondansetron PF 4 MG/2 ML Vial IVP PRN (05:26)
[2022-12-01] MEDS ORDERED: Dextrose 5% in Water 1,000 ML IV PRN (05:26)
[2022-12-01] MEDS ORDERED: Dextrose 50% Abboject 50 ML SYRINGE SLOW IVP PRN (05:26)
[2022-12-01] MEDS ORDERED: Ipratropium/Albuterol 3 ML NEB NEB PRN (05:26)
[2022-12-01] MEDS: Acetaminophen 500 MG TAB PO SCH ×3 (07:54→17:37)
[2022-12-01] MEDS: Sodium Chloride 0.9% 1,000 ML IV SCH ×3 (08:27→21:21)
[2022-12-01] MEDS: Famotidine/PF 20 mg/2ml Vial SLOW IVP SCH (08:27)
[2022-12-01 10:14] LABS: #Eosinphils 0.1 thou/uL (0.0-0.7); #Monocytes 0.5 thou/uL (0.11-0.59); #Neutrophils 6.2 thou/uL (1.40-6.50); %Basophils 0.2 % (0.0-1.0); %Eosinophils 1.3 % (0.0-10.0); %Lymphocytes 20.6 % (21.0-51.0); %Monocytes 5.5 % (0.0-10.0); %Neutrophils 71.9 % (42.0-75.0); Hematocrit 44.6 % (36.0-47.0); Hemoglobin 14.3 g/dL (12.0-16.0); Mean Corpuscular HGB CONC 32.1 g/dL (32.0-36.0); Mean Corpuscular Hemoglobin 31.2 pg (27.0-31.0); Mean Corpuscular Volume 97.4 fl (78.0-98.0); Mean Platelet Volume 10.6 fL (7.4-10.4); Platelet Count 176 10x3/uL (130-400); RBC Distribution Width 16.2 % (11.5-14.5); Red Blood Cell (RBC) Count 4.58 mill/uL (4.20-5.40); White Blood Cell (WBC) Count 8.7 10x3/uL (4.8-10.8)
[2022-12-01 10:30] LABS: INR-International Normal Ratio 1.2; PTT 31.5 sec (22.9-36.1); Prothrombin Time 15.4 sec (12.0-14.7)
[2022-12-01 10:41] LABS: Anion Gap 11 mmol/L (10-20); BUN (Urea Nitrogen) 14 mg/dL (9.8-20.1); Calc. Creatinine Clearance 0 mL/min (70-130); Calcium 8.8 mg/dL (7.8-10.44); Carbon Dioxide 23 mmol/L (23-31); Chloride 111 mmol/L (98-107); Estimated GFR 49; Glucose 139 mg/dL (83-110); Sodium 143 mmol/L (136-145)
[2022-12-01 10:55] LABS: Potassium 2.4 mmol/L (3.5-5.1)
[2022-12-01] MEDS ORDERED: Electrolyte Replacement Protocol 1 EACH FS SCH (11:00)
[2022-12-01] MEDS ORDERED: CEFAZOLIN 2 GM in Sodium Chloride 0.9% 100 ML IVPB SCH (11:30)
[2022-12-01] MEDS ORDERED: Magnesium 2 GM/50 ML(in water) 2 GM in Premix Bag 1 BAG IVPB SCH (15:00)
[2022-12-01] MEDS: Potassium Chloride 40 MEQ in Sodium Chloride 0.9% 250 ML 250 ML IVPB SCH ×2 (16:01→21:21)
[2022-12-02] MEDS: Acetaminophen 500 MG TAB PO SCH ×5 (00:32→23:17)
[2022-12-02 05:45] LABS: #Eosinphils 0.1 thou/uL (0.0-0.7); #Monocytes 0.7 thou/uL (0.11-0.59); #Neutrophils 6.2 thou/uL (1.40-6.50); %Basophils 0.2 % (0.0-1.0); %Eosinophils 1.1 % (0.0-10.0); %Lymphocytes 20.1 % (21.0-51.0); %Monocytes 7.7 % (0.0-10.0); %Neutrophils 70.6 % (42.0-75.0); Hematocrit 41.3 % (36.0-47.0); Hemoglobin 13.3 g/dL (12.0-16.0); Mean Corpuscular HGB CONC 32.2 g/dL (32.0-36.0); Mean Corpuscular Hemoglobin 31.7 pg (27.0-31.0); Mean Corpuscular Volume 98.6 fl (78.0-98.0); Mean Platelet Volume 9.8 fL (7.4-10.4); Platelet Count 132 10x3/uL (130-400); RBC Distribution Width 16.5 % (11.5-14.5); Red Blood Cell (RBC) Count 4.19 mill/uL (4.20-5.40); White Blood Cell (WBC) Count 8.8 10x3/uL (4.8-10.8)
[2022-12-02 06:05] LABS: Anion Gap 11 mmol/L (10-20); BUN (Urea Nitrogen) 20 mg/dL (9.8-20.1); Calc. Creatinine Clearance 35 mL/min (70-130); Calcium 8.1 mg/dL (7.8-10.44); Carbon Dioxide 22 mmol/L (23-31); Chloride 115 mmol/L (98-107); Estimated GFR 34; Glucose 109 mg/dL (83-110); Magnesium 2.5 mg/dL (1.6-2.6); Potassium 3.3 mmol/L (3.5-5.1); Sodium 145 mmol/L (136-145)
[2022-12-02] MEDS ORDERED: Potassium Chloride 20 MEQ TAB PO SCH (08:00)
[2022-12-02] MEDS: Senokot S 8.6-50 MG TAB PO SCH ×2 (08:48→20:51)
[2022-12-02] MEDS: Polyethylene Glycol 3350 17 GM Packet PO SCH (08:48)
[2022-12-02] MEDS: Famotidine/PF 20 mg/2ml Vial SLOW IVP SCH (08:49)
[2022-12-02] MEDS: Carvedilol 6.25 MG TAB PO SCH ×2 (08:49→20:51)
[2022-12-02] MEDS: Potassium Chloride 20 MEQ in Premix Bag 1 BAG IVPB SCH ×2 (08:54→11:55)
[2022-12-02 17:05] LABS: Potassium 3.6 mmol/L (3.5-5.1)
[2022-12-02 17:36] LABS: ALT (SGPT) 138 U/L (8-55); AST (SGOT) 279 U/L (5-34); Albumin 3.2 g/dL (3.4-4.8); Alkaline Phosphatase 69 U/L (40-110); Anion Gap 12 mmol/L (10-20); BUN (Urea Nitrogen) 21 mg/dL (9.8-20.1); Bilirubin, Total 0.6 mg/dL (0.2-1.2); Calc. Creatinine Clearance 29 mL/min (70-130); Calcium 8.5 mg/dL (7.8-10.44); Carbon Dioxide 18 mmol/L (23-31); Chloride 114 mmol/L (98-107); Estimated GFR 28; Globulin 2.6 g/dL (2.4-3.5); Glucose 114 mg/dL (83-110); Protein, Total 5.8 g/dL (5.8-8.1); Sodium 140 mmol/L (136-145)
[2022-12-02] MEDS: Rosuvastatin 20 MG TAB PO SCH (20:51)
[2022-12-03] MEDS ORDERED: Sodium Chloride 0.9% 1,000 ML IV SCH ×2 (00:30)
[2022-12-03] MEDS ORDERED: Lactated Ringer's 1,000 ML IV SCH (00:30)
[2022-12-03] MEDS: Acetaminophen 500 MG TAB PO SCH ×4 (05:26→23:02)
[2022-12-03 06:04] LABS: Anion Gap 9 mmol/L (10-20); BUN (Urea Nitrogen) 21 mg/dL (9.8-20.1); Calc. Creatinine Clearance 30 mL/min (70-130); Calcium 8.4 mg/dL (7.8-10.44); Carbon Dioxide 22 mmol/L (23-31); Chloride 113 mmol/L (98-107); Estimated GFR 29; Glucose 86 mg/dL (83-110); Potassium 3.3 mmol/L (3.5-5.1); Sodium 141 mmol/L (136-145)
[2022-12-03] MEDS ORDERED: Bupivacaine PF 0.5% 30 ML VIAL ONE (06:30)
[2022-12-03] MEDS ORDERED: Tranexamic Acid 1,000 MG/10 ML VIAL ONE (06:52)
[2022-12-03] MEDS ORDERED: Sodium Chloride 0.9% 100 ML ONE ×2 (06:52→06:58)
[2022-12-03] MEDS ORDERED: Vancomycin (BATCH) 1.5 GRAM/300 ML BAG ONE (06:52)
[2022-12-03] MEDS ORDERED: CEFAZOLIN 2 GM VIAL ONE (06:58)
[2022-12-03] MEDS ORDERED: fentaNYL PF 100 MCG/2 ML SYRINGE ONE (07:20)
[2022-12-03] MEDS ORDERED: Phenylephrine 10 MG/ML VIAL ONE (07:21)
[2022-12-03] MEDS ORDERED: Norepinephrine 4 MG/4 ML VIAL ONE (07:21)
[2022-12-03] MEDS ORDERED: Ondansetron PF 4 MG/2 ML Vial ONE (07:35)
[2022-12-03] MEDS ORDERED: Rocuronium Bromide 10 MG/ML (10ML VIAL) ONE (07:35)
[2022-12-03] MEDS ORDERED: Lidocaine 1% PF 5 ML VIAL ONE (07:35)
[2022-12-03] MEDS ORDERED: Dexamethasone 20 MG/5 ML VIAL ONE (07:35)
[2022-12-03] MEDS ORDERED: PROPOFOL 200 MG/20 ML VIAL ONE (07:35)
[2022-12-03] MEDS ORDERED: ePHEDrine Sulfate 50 MG/10 ML VIAL ONE (07:35)
[2022-12-03] MEDS: Famotidine/PF 20 mg/2ml Vial SLOW IVP SCH (07:39)
[2022-12-03] MEDS: Polyethylene Glycol 3350 17 GM Packet PO SCH (07:39)
[2022-12-03] MEDS: Senokot S 8.6-50 MG TAB PO SCH ×2 (07:40→20:44)
[2022-12-03] MEDS ORDERED: Potassium Chloride 20 MEQ TAB PO SCH (08:00)
[2022-12-03] MEDS ORDERED: fentaNYL 50 mcg/mL 1 mL Vial ONE (09:03)
[2022-12-03] MEDS ORDERED: SUGAMMADEX SODIUM 200 MG/2 ML VIAL ONE ×2 (09:03→09:48)
[2022-12-03] MEDS ORDERED: Promethazine HCl 25 MG/ML VIAL IM PRN ×2 (09:12→11:07)
[2022-12-03] MEDS ORDERED: Ondansetron HCl/PF 4 MG/2 ML Vial IVP PRN (09:12)
[2022-12-03] MEDS ORDERED: Naloxone HCl 0.4 mg/ml Vial ONE (09:58)
[2022-12-03] MEDS: HYDROcodone/Acetaminophen 10/325 mg Tablet PO PRN (10:25)
[2022-12-03] MEDS ORDERED: diphenhydrAMINE 25 MG CAP PO PRN (11:07)
[2022-12-03] MEDS ORDERED: Zolpidem Tartrate 5 MG TAB PO PRN (11:07)
[2022-12-03] MEDS ORDERED: Ondansetron PF 4 MG/2 ML Vial IVP PRN (11:07)
[2022-12-03] MEDS ORDERED: traMADol HCl 50 MG TAB PO PRN ×2 (11:07)
[2022-12-03] MEDS ORDERED: HYDROcodone/Acetaminophen 10/325 mg Tablet ONE (11:21)
[2022-12-03] MEDS: Carvedilol 6.25 MG TAB PO SCH ×2 (11:27→20:44)
[2022-12-03] MEDS: CEFAZOLIN 2 GM in Sodium Chloride 0.9% 100 ML IVPB SCH ×2 (15:12→23:02)
[2022-12-03] MEDS: HumaLOG 300 UNITS/3 ML VIAL SC PRN ×2 (19:23→20:48)
[2022-12-03] MEDS: Aspirin 81 mg Enteric Coated Tablet PO SCH (20:43)
[2022-12-03] MEDS: Rosuvastatin 20 MG TAB PO SCH (20:43)
[2022-12-03] MEDS: Ferrous Gluconate 324 MG TAB PO SCH (20:44)
[2022-12-04] MEDS: HYDROcodone/Acetaminophen 10/325 mg Tablet PO PRN (04:37)
[2022-12-04 06:06] LABS: #Monocytes 0.9 thou/uL (0.11-0.59); %Basophils 0.3 % (0.0-1.0); %Lymphocytes 9.4 % (21.0-51.0); %Monocytes 7.4 % (0.0-10.0); %Neutrophils 82.4 % (42.0-75.0); Hemoglobin 13.4 g/dL (12.0-16.0); Mean Corpuscular HGB CONC 31.9 g/dL (32.0-36.0); Mean Corpuscular Hemoglobin 32.1 pg (27.0-31.0); Mean Corpuscular Volume 100.7 fl (78.0-98.0); Mean Platelet Volume 10.3 fL (7.4-10.4); Platelet Count 131 10x3/uL (130-400); RBC Distribution Width 17.2 % (11.5-14.5); Red Blood Cell (RBC) Count 4.17 mill/uL (4.20-5.40); White Blood Cell (WBC) Count 12.1 10x3/uL (4.8-10.8)
[2022-12-04] MEDS: Acetaminophen 500 MG TAB PO SCH (06:22)
[2022-12-04 06:33] LABS: Anion Gap 12 mmol/L (10-20); BUN (Urea Nitrogen) 27 mg/dL (9.8-20.1); Calc. Creatinine Clearance 25 mL/min (70-130); Calcium 8.2 mg/dL (7.8-10.44); Carbon Dioxide 19 mmol/L (23-31); Chloride 111 mmol/L (98-107); Estimated GFR 23; Glucose 204 mg/dL (83-110); Potassium 4.8 mmol/L (3.5-5.1); Sodium 137 mmol/L (136-145)
[2022-12-04] MEDS ORDERED: traMADol HCl 50 MG TAB PO PRN (08:45)
[2022-12-04] MEDS: Multivitamin W/ Minerals 1 TAB PO SCH (09:28)
[2022-12-04] MEDS: Ferrous Gluconate 324 MG TAB PO SCH ×3 (09:29→23:39)
[2022-12-04] MEDS: Aspirin 81 mg Enteric Coated Tablet PO SCH ×3 (09:29→23:38)
[2022-12-04] MEDS: Carvedilol 6.25 MG TAB PO SCH (09:29)
[2022-12-04] MEDS: Famotidine 20 MG TAB PO SCH (09:29)
[2022-12-04] MEDS: Senokot S 8.6-50 MG TAB PO SCH ×3 (09:29→23:39)
[2022-12-04] MEDS: Polyethylene Glycol 3350 17 GM Packet PO SCH (09:30)
[2022-12-04] MEDS: Acetaminophen 325 MG TAB PO SCH ×2 (12:52→19:03)
[2022-12-04] MEDS ORDERED: Sodium Chloride 0.9% 1,000 ML IV SCH ×2 (14:15→14:45)
[2022-12-04] MEDS ORDERED: Piperacillin/Tazobactam 3.375 GM in Sodium Chloride 0.9% 100 ML IVPB SCH (14:45)
[2022-12-04] MEDS ORDERED: Sodium Chloride 0.9% 500 ML IV SCH (14:45)
[2022-12-04] MEDS ORDERED: Albumin 25% 25 GM/100 ML BOT IVPB SCH (14:45)
[2022-12-04] MEDS ORDERED: NOREPINEPHRINE 8 MG/250 ML-D5W 250 ML IVPB SCH (19:00)
[2022-12-04] MEDS ORDERED: Lactated Ringer's 1,000 ML IV SCH (19:00)
[2022-12-04] MEDS: Piperacillin/Tazobactam 3.375 GM in Sodium Chloride 0.9% 100 ML IVPB SCH (19:06)
[2022-12-04] MEDS ORDERED: Sodium Bicarb 50 MEQ/50 ML VIAL IVP SCH (19:15)
[2022-12-04] MEDS: Rosuvastatin 20 MG TAB PO SCH ×2 (19:50→23:39)
[2022-12-04 20:18] LABS: Hematocrit 41.5 % (36.0-47.0); Hemoglobin 12.8 g/dL (12.0-16.0); Mean Corpuscular HGB CONC 30.8 g/dL (32.0-36.0); Mean Corpuscular Hemoglobin 32.2 pg (27.0-31.0); Platelet Count 108 10x3/uL (130-400); RBC Distribution Width 17.5 % (11.5-14.5); Red Blood Cell (RBC) Count 3.97 mill/uL (4.20-5.40)
[2022-12-04 20:23] LABS: Mean Corpuscular Volume 104.5 fl (78.0-98.0)
[2022-12-04 20:39] LABS: ALT (SGPT) 93 U/L (8-55); AST (SGOT) 186 U/L (5-34); Albumin 3.3 g/dL (3.4-4.8); Alkaline Phosphatase 56 U/L (40-110); Anion Gap 12 mmol/L (10-20); BUN (Urea Nitrogen) 30 mg/dL (9.8-20.1); Bilirubin, Total 0.3 mg/dL (0.2-1.2); Calc. Creatinine Clearance 20 mL/min (70-130); Calcium 7.8 mg/dL (7.8-10.44); Carbon Dioxide 20 mmol/L (23-31); Chloride 109 mmol/L (98-107); Estimated GFR 18; Globulin 2.3 g/dL (2.4-3.5); Glucose 141 mg/dL (83-110); Magnesium 2.4 mg/dL (1.6-2.6); Potassium 5.6 mmol/L (3.5-5.1); Protein, Total 5.6 g/dL (5.8-8.1); Sodium 135 mmol/L (136-145)
[2022-12-04 20:50] LABS: Phosphorus 4.6 mg/dL (2.3-4.7)
[2022-12-04 20:53] LABS: Troponin I 2.183 ng/mL (< 0.028)
[2022-12-04 21:33] LABS: CK (CPK) 5684 U/L (29-168)
[2022-12-05] MEDS ORDERED: Hydrocortisone Sod Succ/PF 100 mg/2 ml Vial IVP SCH ×2 (00:30→08:30)
[2022-12-05] MEDS: Acetaminophen 325 MG TAB PO SCH ×7 (00:31→23:15)
[2022-12-05 00:38] LABS: Troponin I 2.431 ng/mL (< 0.028)
[2022-12-05 04:23] LABS: #Monocytes 1.2 thou/uL (0.11-0.59); #Neutrophils 10.4 thou/uL (1.40-6.50); %Basophils 0.2 % (0.0-1.0); %Lymphocytes 7.8 % (21.0-51.0); %Monocytes 9.5 % (0.0-10.0); %Neutrophils 81.9 % (42.0-75.0); Hemoglobin 12.7 g/dL (12.0-16.0); Mean Corpuscular HGB CONC 30.2 g/dL (32.0-36.0); Mean Corpuscular Hemoglobin 31.7 pg (27.0-31.0); Mean Corpuscular Volume 104.7 fl (78.0-98.0); Mean Platelet Volume 10.2 fL (7.4-10.4); RBC Distribution Width 17.5 % (11.5-14.5); Red Blood Cell (RBC) Count 4.01 mill/uL (4.20-5.40); White Blood Cell (WBC) Count 12.7 10x3/uL (4.8-10.8)
[2022-12-05 04:32] LABS: Platelet Count 119 10x3/uL (130-400)
[2022-12-05 04:46] LABS: ALT (SGPT) 167 U/L (8-55); AST (SGOT) 467 U/L (5-34); Albumin 3.3 g/dL (3.4-4.8); Alkaline Phosphatase 61 U/L (40-110); Anion Gap 14 mmol/L (10-20); BUN (Urea Nitrogen) 34 mg/dL (9.8-20.1); Bilirubin, Total 0.4 mg/dL (0.2-1.2); Calc. Creatinine Clearance 20 mL/min (70-130); Calcium 7.9 mg/dL (7.8-10.44); Carbon Dioxide 18 mmol/L (23-31); Chloride 110 mmol/L (98-107); Estimated GFR 18; Globulin 2.5 g/dL (2.4-3.5); Glucose 139 mg/dL (83-110); Potassium 5.5 mmol/L (3.5-5.1); Protein, Total 5.8 g/dL (5.8-8.1); Sodium 136 mmol/L (136-145)
[2022-12-05] MEDS: Piperacillin/Tazobactam 3.375 GM in Sodium Chloride 0.9% 100 ML IVPB SCH ×2 (05:20→18:13)
[2022-12-05] MEDS ORDERED: Aspirin 300 MG Suppository PR SCH (09:00)
[2022-12-05] MEDS: Aspirin 81 mg Enteric Coated Tablet PO SCH (09:36)
[2022-12-05] MEDS: Polyethylene Glycol 3350 17 GM Packet PO SCH (09:36)
[2022-12-05] MEDS: Ferrous Gluconate 324 MG TAB PO SCH ×3 (09:36→21:43)
[2022-12-05] MEDS: Famotidine 20 MG TAB PO SCH (09:37)
[2022-12-05] MEDS: Multivitamin W/ Minerals 1 TAB PO SCH (09:37)
[2022-12-05] MEDS: Senokot S 8.6-50 MG TAB PO SCH ×3 (09:37→21:44)
[2022-12-05] MEDS ORDERED: Heparin 10,000 UNITS/ 10 ML VIAL SLOW IVP SCH (10:45)
[2022-12-05] MEDS ORDERED: Heparin 25,000 units/D5W 500 ML IVPB SCH (10:45)
[2022-12-05] MEDS ORDERED: Sodium Bicarbonate 150 MEQ in Dextrose 5% in Water 1,000 ML IV SCH (10:45)
[2022-12-05] MEDS ORDERED: Fludrocortisone Acetate 0.1 MG TAB PO SCH (11:00)
[2022-12-05] MEDS ORDERED: Hydrocortisone 10 mg Tablet PO SCH (11:00)
[2022-12-05 11:38] LABS: Troponin I 2.589 ng/mL (< 0.028)
[2022-12-05] MEDS: Sodium Bicarbonate 150 MEQ in Sterile Water 1,000 ML IV SCH ×2 (12:46→19:47)
[2022-12-05 13:29] LABS: Troponin I 2.603 ng/mL (< 0.028)
[2022-12-05 13:36] LABS: Albumin 3.3 g/dL (3.4-4.8); Anion Gap 14 mmol/L (10-20); BUN (Urea Nitrogen) 37 mg/dL (9.8-20.1); BUN/Creatinine Ratio 13.55; Calc. Creatinine Clearance 22 mL/min (70-130); Calcium 7.8 mg/dL (7.8-10.44); Carbon Dioxide 19 mmol/L (23-31); Chloride 110 mmol/L (98-107); Estimated GFR 18; Glucose 136 mg/dL (83-110); Phosphorus 4.8 mg/dL (2.3-4.7); Potassium 5.2 mmol/L (3.5-5.1); Sodium 138 mmol/L (136-145)
[2022-12-05 13:50] LABS: CK (CPK) 4622 U/L (29-168)
[2022-12-05 14:58] LABS: Bacteria/HPF 4+ HPF (None Seen); Bilirubin Negative (Negative); Blood, Urine 3+ (Negative); CAUTI Indications for Culture Pelvic or flank pain; Clarity Turbid (Clear); Glucose, Urine (Dipstick) Normal (Negative); Ketone, Urine Trace mg/dL (Negative); Leukocyte 75 Leu/uL (Negative); Nitrite Negative (Negative); Protein, Urine (Dipstick) 100 mg/dL (Neg-Trace); Specific Gravity, Urine 1.027 (1.002-1.036); Squamous Epithelial 0-3 HPF (0-3); Urobilinogen Normal mg/dL (Less than 2)
[2022-12-05 15:00] LABS: Urine Culture Reflex Yes Yes
[2022-12-05 15:11] LABS: Creatinine, Urine 119.7 mg/dL (47-110)
[2022-12-05] MEDS: Heparin 5,000 UNITS/ML VIAL SC SCH ×2 (15:47→20:56)
[2022-12-05 20:07] LABS: Albumin 3.1 g/dL (3.4-4.8); Anion Gap 12 mmol/L (10-20); BUN (Urea Nitrogen) 37 mg/dL (9.8-20.1); BUN/Creatinine Ratio 14.34; CK (CPK) 3694 U/L (29-168); Calc. Creatinine Clearance 23 mL/min (70-130); Calcium 7.4 mg/dL (7.8-10.44); Carbon Dioxide 25 mmol/L (23-31); Chloride 103 mmol/L (98-107); Estimated GFR 19; Glucose 134 mg/dL (83-110); Phosphorus 4.3 mg/dL (2.3-4.7); Potassium 4.3 mmol/L (3.5-5.1); Sodium 136 mmol/L (136-145)
[2022-12-05] MEDS: Rosuvastatin 20 MG TAB PO SCH ×2 (20:46→21:44)
[2022-12-06] MEDS: Sodium Bicarbonate 150 MEQ in Sterile Water 1,000 ML IV SCH ×3 (02:00→10:36)
[2022-12-06] MEDS: Acetaminophen 325 MG TAB PO SCH ×4 (04:25→23:18)
[2022-12-06 04:56] LABS: Hematocrit 34.3 % (36.0-47.0); Hemoglobin 11.1 g/dL (12.0-16.0); Mean Corpuscular HGB CONC 32.4 g/dL (32.0-36.0); Mean Corpuscular Hemoglobin 31.9 pg (27.0-31.0); Mean Corpuscular Volume 98.6 fl (78.0-98.0); Mean Platelet Volume 10.7 fL (7.4-10.4); RBC Distribution Width 16.9 % (11.5-14.5); Red Blood Cell (RBC) Count 3.48 mill/uL (4.20-5.40); White Blood Cell (WBC) Count 9.4 10x3/uL (4.8-10.8)
[2022-12-06 05:24] LABS: Platelet Count 86 10x3/uL (130-400)
[2022-12-06] MEDS ORDERED: Sodium Bicarbonate 150 MEQ in Dextrose 5% in Water 1,000 ML IV SCH (09:00)
[2022-12-06] MEDS: Multivitamin W/ Minerals 1 TAB PO SCH (09:47)
[2022-12-06] MEDS: Ferrous Gluconate 324 MG TAB PO SCH ×2 (09:47→20:44)
[2022-12-06] MEDS: Famotidine 20 MG TAB PO SCH (09:49)
[2022-12-06] MEDS: Aspirin 325 MG TAB PO SCH (09:51)
[2022-12-06] MEDS: Senokot S 8.6-50 MG TAB PO SCH ×2 (09:52→20:45)
[2022-12-06] MEDS: Polyethylene Glycol 3350 17 GM Packet PO SCH (09:53)
[2022-12-06] MEDS: Carvedilol 6.25 MG TAB PO SCH ×2 (09:55→20:48)
[2022-12-06] MEDS: Heparin 5,000 UNITS/ML VIAL SC SCH (10:36)
[2022-12-06] MEDS: Fludrocortisone Acetate 0.1 MG TAB PO SCH (10:37)
[2022-12-06] MEDS: Rosuvastatin 20 MG TAB PO SCH (20:44)
[2022-12-06] MEDS ORDERED: Hydrocortisone 10 mg Tablet PO SCH (21:00)
[2022-12-07 05:01] LABS: Hemoglobin 10.8 g/dL (12.0-16.0)
[2022-12-07 05:02] LABS: Hematocrit 33.2 % (36.0-47.0); Mean Corpuscular HGB CONC 32.5 g/dL (32.0-36.0); Mean Corpuscular Hemoglobin 31.9 pg (27.0-31.0); Mean Corpuscular Volume 97.9 fl (78.0-98.0); Mean Platelet Volume 10.4 fL (7.4-10.4); Platelet Count 106 10x3/uL (130-400); RBC Distribution Width 16.8 % (11.5-14.5); Red Blood Cell (RBC) Count 3.39 mill/uL (4.20-5.40); White Blood Cell (WBC) Count 9.9 10x3/uL (4.8-10.8)
[2022-12-07 05:33] LABS: Albumin 2.9 g/dL (3.4-4.8); Anion Gap 12 mmol/L (10-20); BUN (Urea Nitrogen) 34 mg/dL (9.8-20.1); BUN/Creatinine Ratio 15.96; CK (CPK) 3037 U/L (29-168); Calc. Creatinine Clearance 289 mL/min (70-130); Carbon Dioxide 35 mmol/L (23-31); Chloride 98 mmol/L (98-107); Estimated GFR 24; Glucose 92 mg/dL (83-110); Phosphorus 3.1 mg/dL (2.3-4.7); Potassium 3.3 mmol/L (3.5-5.1); Sodium 142 mmol/L (136-145)
[2022-12-07] MEDS: Acetaminophen 325 MG TAB PO SCH ×3 (06:23→17:35)
[2022-12-07] MEDS ORDERED: Potassium Chloride 20 MEQ TAB PO SCH (06:30)
[2022-12-07] MEDS: Sodium Chloride 0.9% 1,000 ML IV SCH ×2 (06:37→16:12)
[2022-12-07] MEDS: Senokot S 8.6-50 MG TAB PO SCH ×2 (08:36→20:44)
[2022-12-07] MEDS: Carvedilol 6.25 MG TAB PO SCH (08:37)
[2022-12-07] MEDS: Ferrous Gluconate 324 MG TAB PO SCH ×2 (08:41→20:44)
[2022-12-07] MEDS: Multivitamin W/ Minerals 1 TAB PO SCH (08:41)
[2022-12-07] MEDS: Aspirin 325 MG TAB PO SCH (08:42)
[2022-12-07] MEDS: Polyethylene Glycol 3350 17 GM Packet PO SCH (08:42)
[2022-12-07] MEDS: Fludrocortisone Acetate 0.1 MG TAB PO SCH (08:42)
[2022-12-07] MEDS: Albumin 25% 25 GM/100 ML BOT IVPB SCH ×2 (10:17→17:35)
[2022-12-07] MEDS: Ipratropium/Albuterol 3 ML NEB NEB SCH ×2 (13:22→18:09)
[2022-12-07] MEDS: traMADol HCl 50 MG TAB PO PRN (16:11)
[2022-12-07] MEDS: Rosuvastatin 20 MG TAB PO SCH (20:44)
[2022-12-08] MEDS: Acetaminophen 325 MG TAB PO SCH ×4 (00:48→17:55)
[2022-12-08] MEDS: Sodium Chloride 0.9% 1,000 ML IV SCH ×2 (02:20→11:54)
[2022-12-08] MEDS: Ipratropium/Albuterol 3 ML NEB NEB SCH ×3 (06:29→19:35)
[2022-12-08 07:30] LABS: Hematocrit 30.4 % (36.0-47.0); Hemoglobin 9.7 g/dL (12.0-16.0); Mean Corpuscular HGB CONC 31.9 g/dL (32.0-36.0); Mean Corpuscular Hemoglobin 32.4 pg (27.0-31.0); Mean Corpuscular Volume 101.7 fl (78.0-98.0); Platelet Count 101 10x3/uL (130-400); RBC Distribution Width 17.1 % (11.5-14.5); Red Blood Cell (RBC) Count 2.99 mill/uL (4.20-5.40); White Blood Cell (WBC) Count 9.2 10x3/uL (4.8-10.8)
[2022-12-08 07:56] LABS: Albumin 3.2 g/dL (3.4-4.8); Anion Gap 11 mmol/L (10-20); BUN (Urea Nitrogen) 29 mg/dL (9.8-20.1); BUN/Creatinine Ratio 16.67; CK (CPK) 1915 U/L (29-168); Calc. Creatinine Clearance 38 mL/min (70-130); Calcium 8.5 mg/dL (7.8-10.44); Carbon Dioxide 33 mmol/L (23-31); Chloride 101 mmol/L (98-107); Estimated GFR 30; Glucose 85 mg/dL (83-110); Phosphorus 2.6 mg/dL (2.3-4.7); Potassium 3.2 mmol/L (3.5-5.1); Sodium 142 mmol/L (136-145)
[2022-12-08] MEDS ORDERED: Heparin 5,000 UNITS/ML VIAL SC SCH (09:00)
[2022-12-08] MEDS: Potassium Chloride 20 MEQ TAB PO SCH ×2 (09:12→16:21)
[2022-12-08] MEDS: Senokot S 8.6-50 MG TAB PO SCH ×2 (09:12→20:48)
[2022-12-08] MEDS: Ferrous Gluconate 324 MG TAB PO SCH ×2 (09:12→20:47)
[2022-12-08] MEDS: Polyethylene Glycol 3350 17 GM Packet PO SCH (09:12)
[2022-12-08] MEDS: Multivitamin W/ Minerals 1 TAB PO SCH (09:13)
[2022-12-08] MEDS: Clopidogrel Bisulfate 75 MG TAB PO SCH (09:13)
[2022-12-08] MEDS: HYDROcodone/Acetaminophen 10/325 mg Tablet PO PRN ×2 (09:13→13:44)
[2022-12-08 09:41] LABS: ALT (SGPT) 25 U/L (8-55); AST (SGOT) 110 U/L (5-34); Alkaline Phosphatase 71 U/L (40-110); Bilirubin, Direct 0.5 mg/dL (0.1-0.3); Bilirubin, Total 0.8 mg/dL (0.2-1.2); Magnesium 2.1 mg/dL (1.6-2.6); Protein, Total 5.1 g/dL (5.8-8.1)
[2022-12-08 09:47] LABS: #Eosinphils 0.2 thou/uL (0.0-0.7); #Monocytes 0.6 thou/uL (0.11-0.59); #Neutrophils 7.5 thou/uL (1.40-6.50); %Basophils 0.2 % (0.0-1.0); %Eosinophils 1.6 % (0.0-10.0); %Lymphocytes 16.2 % (21.0-51.0); %Monocytes 6.4 % (0.0-10.0); %Neutrophils 74.8 % (42.0-75.0); Hematocrit 33.1 % (36.0-47.0); Hemoglobin 10.6 g/dL (12.0-16.0); Mean Corpuscular Hemoglobin 32.1 pg (27.0-31.0); Mean Corpuscular Volume 100.3 fl (78.0-98.0); Mean Platelet Volume 10.8 fL (7.4-10.4); Platelet Count 109 10x3/uL (130-400); RBC Distribution Width 17.2 % (11.5-14.5); White Blood Cell (WBC) Count 10.1 10x3/uL (4.8-10.8)
[2022-12-08] MEDS ORDERED: Furosemide 20 MG TAB PO SCH (16:45)
[2022-12-08] MEDS ORDERED: Spironolactone 25 MG TAB PO SCH (16:45)
[2022-12-08] MEDS: Albumin 25% 25 GM/100 ML BOT IVPB SCH (17:55)
[2022-12-08] MEDS: Rosuvastatin 20 MG TAB PO SCH (20:48)
[2022-12-09] MEDS: Sodium Chloride 0.9% 1,000 ML IV SCH ×3 (00:10→18:00)
[2022-12-09] MEDS: Albumin 25% 25 GM/100 ML BOT IVPB SCH (00:10)
[2022-12-09] MEDS: Acetaminophen 325 MG TAB PO SCH ×6 (00:11→23:41)
[2022-12-09 05:31] LABS: Hemoglobin 10.6 g/dL (12.0-16.0)
[2022-12-09 05:33] LABS: Mean Corpuscular HGB CONC 32.1 g/dL (32.0-36.0); Mean Corpuscular Hemoglobin 32.4 pg (27.0-31.0); Mean Corpuscular Volume 100.9 fl (78.0-98.0); Mean Platelet Volume 10.3 fL (7.4-10.4); Platelet Count 129 10x3/uL (130-400); RBC Distribution Width 17.4 % (11.5-14.5); Red Blood Cell (RBC) Count 3.27 mill/uL (4.20-5.40); White Blood Cell (WBC) Count 12.7 10x3/uL (4.8-10.8)
[2022-12-09 06:04] LABS: ALT (SGPT) 28 U/L (8-55); AST (SGOT) 107 U/L (5-34); Albumin 4.2 g/dL (3.4-4.8); Alkaline Phosphatase 78 U/L (40-110); Anion Gap 17 mmol/L (10-20); BUN (Urea Nitrogen) 24 mg/dL (9.8-20.1); BUN/Creatinine Ratio 16.11; Bilirubin, Total 1.6 mg/dL (0.2-1.2); CK (CPK) 2213 U/L (29-168); Calc. Creatinine Clearance 44 mL/min (70-130); Calcium 9.7 mg/dL (7.8-10.44); Carbon Dioxide 28 mmol/L (23-31); Chloride 105 mmol/L (98-107); Estimated GFR 37; Globulin 2.1 g/dL (2.4-3.5); Glucose 134 mg/dL (83-110); Phosphorus 2.4 mg/dL (2.3-4.7); Potassium 3.8 mmol/L (3.5-5.1); Protein, Total 6.3 g/dL (5.8-8.1); Sodium 146 mmol/L (136-145)
[2022-12-09] MEDS: Ipratropium/Albuterol 3 ML NEB NEB SCH ×3 (06:53→19:08)
[2022-12-09] MEDS: Senokot S 8.6-50 MG TAB PO SCH ×2 (08:27→20:42)
[2022-12-09] MEDS: Clopidogrel Bisulfate 75 MG TAB PO SCH (08:27)
[2022-12-09] MEDS: Polyethylene Glycol 3350 17 GM Packet PO SCH (08:27)
[2022-12-09] MEDS: Spironolactone 25 MG TAB PO SCH (08:28)
[2022-12-09] MEDS: Multivitamin W/ Minerals 1 TAB PO SCH (08:28)
[2022-12-09] MEDS: HYDROcodone/Acetaminophen 10/325 mg Tablet PO PRN ×2 (08:28→17:55)
[2022-12-09] MEDS: Ferrous Gluconate 324 MG TAB PO SCH ×2 (08:28→20:42)
[2022-12-09 10:28] LABS: Bacteria/HPF 1+ HPF (None Seen); Bilirubin Negative (Negative); Blood, Urine 3+ (Negative); CAUTI Indications for Culture Pelvic or flank pain; Clarity Clear (Clear); Glucose, Urine (Dipstick) Normal (Negative); Ketone, Urine Negative (Negative); Leukocyte Negative Leu/uL (Negative); Nitrite Negative (Negative); Protein, Urine (Dipstick) 20 mg/dL (Neg-Trace); RBC/HPF 0-3 HPF (0-3); Specific Gravity, Urine 1.008 (1.002-1.036); Squamous Epithelial None Seen HPF (0-3); Urobilinogen Normal mg/dL (Less than 2); WBC/HPF 0-3 HPF (0-3)
[2022-12-09 10:29] LABS: Urine Culture Reflex No No
[2022-12-09] MEDS: Carvedilol 6.25 MG TAB PO SCH (17:58)
[2022-12-09] MEDS: Rosuvastatin 20 MG TAB PO SCH (20:42)
[2022-12-10] MEDS: HYDROcodone/Acetaminophen 10/325 mg Tablet PO PRN ×3 (02:22→18:15)
[2022-12-10] MEDS: Sodium Chloride 0.9% 1,000 ML IV SCH ×4 (04:34→23:33)
[2022-12-10] MEDS: Acetaminophen 325 MG TAB PO SCH ×4 (05:30→23:22)
[2022-12-10 06:03] LABS: #Eosinphils 0.3 thou/uL (0.0-0.7); #Monocytes 1.4 thou/uL (0.11-0.59); #Neutrophils 7.8 thou/uL (1.40-6.50); %Basophils 0.3 % (0.0-1.0); %Eosinophils 2.2 % (0.0-10.0); %Lymphocytes 16.5 % (21.0-51.0); %Monocytes 11.7 % (0.0-10.0); %Neutrophils 67.7 % (42.0-75.0); Hematocrit 32.5 % (36.0-47.0); Hemoglobin 10.1 g/dL (12.0-16.0); Mean Corpuscular HGB CONC 31.1 g/dL (32.0-36.0); Mean Corpuscular Hemoglobin 32.1 pg (27.0-31.0); Mean Corpuscular Volume 103.2 fl (78.0-98.0); Mean Platelet Volume 11.1 fL (7.4-10.4); Platelet Count 112 10x3/uL (130-400); Red Blood Cell (RBC) Count 3.15 mill/uL (4.20-5.40); White Blood Cell (WBC) Count 11.5 10x3/uL (4.8-10.8)
[2022-12-10 06:30] LABS: Anion Gap 11 mmol/L (10-20); BUN (Urea Nitrogen) 24 mg/dL (9.8-20.1); Calc. Creatinine Clearance 46 mL/min (70-130); Calcium 9.1 mg/dL (7.8-10.44); Carbon Dioxide 30 mmol/L (23-31); Chloride 104 mmol/L (98-107); Estimated GFR 38; Glucose 118 mg/dL (83-110); Magnesium 1.8 mg/dL (1.6-2.6); Phosphorus 2.7 mg/dL (2.3-4.7); Potassium 3.7 mmol/L (3.5-5.1); Sodium 141 mmol/L (136-145)
[2022-12-10] MEDS: Ipratropium/Albuterol 3 ML NEB NEB SCH ×3 (07:20→19:41)
[2022-12-10] MEDS: Carvedilol 6.25 MG TAB PO SCH ×2 (08:59→18:16)
[2022-12-10] MEDS: Polyethylene Glycol 3350 17 GM Packet PO SCH (08:59)
[2022-12-10] MEDS: Clopidogrel Bisulfate 75 MG TAB PO SCH (09:00)
[2022-12-10] MEDS: Ferrous Gluconate 324 MG TAB PO SCH ×2 (09:00→20:37)
[2022-12-10] MEDS: Senokot S 8.6-50 MG TAB PO SCH ×2 (09:00→20:37)
[2022-12-10] MEDS: Multivitamin W/ Minerals 1 TAB PO SCH (09:00)
[2022-12-10] MEDS: hydrALAZINE 25 MG TAB PO SCH ×3 (09:00→20:38)
[2022-12-10] MEDS: Spironolactone 25 MG TAB PO SCH (09:00)
[2022-12-10] MEDS ORDERED: Magnesium 2 GM/50 ML(in water) 2 GM in Premix Bag 1 BAG IVPB SCH (10:00)
[2022-12-10 15:37] VITALS: BMI 33.9
[2022-12-10] MEDS ORDERED: Sodium Chloride 0.9% 1,000 ML IV SCH (16:15)
[2022-12-10] MEDS: Rosuvastatin 20 MG TAB PO SCH (20:38)
[2022-12-10] MEDS: traMADol HCl 50 MG TAB PO PRN (23:23)
[2022-12-11] MEDS: Acetaminophen 325 MG TAB PO SCH ×3 (05:42→17:53)
[2022-12-11] MEDS: HYDROcodone/Acetaminophen 10/325 mg Tablet PO PRN ×3 (05:47→20:52)
[2022-12-11] MEDS: Ipratropium/Albuterol 3 ML NEB NEB SCH ×2 (06:25→12:26)
[2022-12-11 06:45] LABS: Phosphorus 3.1 mg/dL (2.3-4.7)
[2022-12-11 06:46] LABS: Albumin 3.4 g/dL (3.4-4.8); Anion Gap 13 mmol/L (10-20); BUN (Urea Nitrogen) 24 mg/dL (9.8-20.1); BUN/Creatinine Ratio 17.78; CK (CPK) 1629 U/L (29-168); Calc. Creatinine Clearance 49 mL/min (70-130); Calcium 8.9 mg/dL (7.8-10.44); Carbon Dioxide 27 mmol/L (23-31); Chloride 103 mmol/L (98-107); Estimated GFR 41; Glucose 113 mg/dL (83-110); Magnesium 2.1 mg/dL (1.6-2.6); Phosphorus 3.1 mg/dL (2.3-4.7); Potassium 3.8 mmol/L (3.5-5.1); Sodium 139 mmol/L (136-145)
[2022-12-11] MEDS ORDERED: Furosemide 40 MG/4 ML VIAL SLOW IVP SCH (08:30)
[2022-12-11] MEDS: Senokot S 8.6-50 MG TAB PO SCH ×2 (09:37→20:54)
[2022-12-11] MEDS: Clopidogrel Bisulfate 75 MG TAB PO SCH (09:37)
[2022-12-11] MEDS: Polyethylene Glycol 3350 17 GM Packet PO SCH (09:37)
[2022-12-11] MEDS: Multivitamin W/ Minerals 1 TAB PO SCH (09:37)
[2022-12-11] MEDS: hydrALAZINE 25 MG TAB PO SCH ×3 (09:38→20:51)
[2022-12-11] MEDS: Carvedilol 6.25 MG TAB PO SCH ×2 (09:38→17:53)
[2022-12-11] MEDS: Ferrous Gluconate 324 MG TAB PO SCH ×2 (09:38→20:54)
[2022-12-11] MEDS: Spironolactone 25 MG TAB PO SCH (09:38)
[2022-12-11] MEDS ORDERED: Albumin 25% 25 GM/100 ML BOT IVPB SCH (14:45)
[2022-12-11 17:32] LABS: Anion Gap 16 mmol/L (10-20); BUN (Urea Nitrogen) 25 mg/dL (9.8-20.1); CK (CPK) 1577 U/L (29-168); Calc. Creatinine Clearance 46 mL/min (70-130); Calcium 9.1 mg/dL (7.8-10.44); Carbon Dioxide 23 mmol/L (23-31); Chloride 102 mmol/L (98-107); Estimated GFR 39; Glucose 134 mg/dL (83-110); Sodium 137 mmol/L (136-145)
[2022-12-11] MEDS: Rosuvastatin 20 MG TAB PO SCH (20:53)
[2022-12-12] MEDS: Ipratropium/Albuterol 3 ML NEB NEB SCH ×4 (00:32→21:39)
[2022-12-12] MEDS: HYDROcodone/Acetaminophen 10/325 mg Tablet PO PRN ×3 (06:48→20:31)
[2022-12-12] MEDS: Acetaminophen 325 MG TAB PO SCH ×5 (06:50→23:05)
[2022-12-12 07:11] LABS: #Eosinphils 0.2 thou/uL (0.0-0.7); #Monocytes 1.2 thou/uL (0.11-0.59); #Neutrophils 8.9 thou/uL (1.40-6.50); %Basophils 0.3 % (0.0-1.0); %Eosinophils 1.8 % (0.0-10.0); %Lymphocytes 15.8 % (21.0-51.0); %Monocytes 9.6 % (0.0-10.0); %Neutrophils 71.4 % (42.0-75.0); Hematocrit 31.9 % (36.0-47.0); Hemoglobin 10.1 g/dL (12.0-16.0); Mean Corpuscular HGB CONC 31.7 g/dL (32.0-36.0); Mean Corpuscular Hemoglobin 32.3 pg (27.0-31.0); Mean Corpuscular Volume 101.9 fl (78.0-98.0); Mean Platelet Volume 10.9 fL (7.4-10.4); Platelet Count 129 10x3/uL (130-400); RBC Distribution Width 18.1 % (11.5-14.5); Red Blood Cell (RBC) Count 3.13 mill/uL (4.20-5.40); White Blood Cell (WBC) Count 12.5 10x3/uL (4.8-10.8)
[2022-12-12 07:36] LABS: Anion Gap 14 mmol/L (10-20); BUN (Urea Nitrogen) 25 mg/dL (9.8-20.1); CK (CPK) 1440 U/L (29-168); Calc. Creatinine Clearance 47 mL/min (70-130); Calcium 8.9 mg/dL (7.8-10.44); Carbon Dioxide 27 mmol/L (23-31); Chloride 101 mmol/L (98-107); Estimated GFR 40; Glucose 93 mg/dL (83-110); Potassium 3.7 mmol/L (3.5-5.1); Sodium 138 mmol/L (136-145)
[2022-12-12] MEDS: Carvedilol 6.25 MG TAB PO SCH ×2 (08:10→17:41)
[2022-12-12] MEDS: Spironolactone 25 MG TAB PO SCH (08:10)
[2022-12-12] MEDS: hydrALAZINE 25 MG TAB PO SCH ×3 (08:10→20:32)
[2022-12-12] MEDS: Clopidogrel Bisulfate 75 MG TAB PO SCH (08:12)
[2022-12-12] MEDS: Ferrous Gluconate 324 MG TAB PO SCH ×2 (08:12→20:31)
[2022-12-12] MEDS: Multivitamin W/ Minerals 1 TAB PO SCH (08:12)
[2022-12-12] MEDS: Polyethylene Glycol 3350 17 GM Packet PO SCH (08:12)
[2022-12-12] MEDS: Senokot S 8.6-50 MG TAB PO SCH ×2 (08:12→20:31)
[2022-12-12] MEDS: Rosuvastatin 20 MG TAB PO SCH (20:31)
[2022-12-13] MEDS: HYDROcodone/Acetaminophen 10/325 mg Tablet PO PRN ×2 (00:39→21:08)
[2022-12-13] MEDS: Acetaminophen 325 MG TAB PO SCH ×4 (06:17→18:50)
[2022-12-13] MEDS: Ipratropium/Albuterol 3 ML NEB NEB SCH ×3 (06:50→19:02)
[2022-12-13 07:25] LABS: Anion Gap 14 mmol/L (10-20); BUN (Urea Nitrogen) 22 mg/dL (9.8-20.1); CK (CPK) 1464 U/L (29-168); Calc. Creatinine Clearance 50 mL/min (70-130); Calcium 8.8 mg/dL (7.8-10.44); Carbon Dioxide 28 mmol/L (23-31); Chloride 104 mmol/L (98-107); Estimated GFR 43; Glucose 89 mg/dL (83-110); Potassium 3.6 mmol/L (3.5-5.1); Sodium 142 mmol/L (136-145)
[2022-12-13] MEDS ORDERED: Heparin 5,000 UNITS/ML VIAL SC SCH (09:00)
[2022-12-13] MEDS: Polyethylene Glycol 3350 17 GM Packet PO SCH (09:11)
[2022-12-13] MEDS: Senokot S 8.6-50 MG TAB PO SCH ×2 (09:16→21:09)
[2022-12-13] MEDS: Multivitamin W/ Minerals 1 TAB PO SCH (09:16)
[2022-12-13] MEDS: Carvedilol 6.25 MG TAB PO SCH (09:16)
[2022-12-13] MEDS: Clopidogrel Bisulfate 75 MG TAB PO SCH (09:16)
[2022-12-13] MEDS: Spironolactone 25 MG TAB PO SCH (09:16)
[2022-12-13] MEDS: Ferrous Gluconate 324 MG TAB PO SCH ×2 (09:16→21:08)
[2022-12-13] MEDS: hydrALAZINE 25 MG TAB PO SCH ×3 (13:27→21:09)
[2022-12-13] MEDS ORDERED: Carvedilol 6.25 MG TAB PO SCH (17:00)
[2022-12-13] MEDS: Rosuvastatin 20 MG TAB PO SCH (21:08)
[2022-12-14] MEDS: HYDROcodone/Acetaminophen 10/325 mg Tablet PO PRN ×2 (00:48→06:16)
[2022-12-14] MEDS: Acetaminophen 325 MG TAB PO SCH ×4 (00:48→17:37)
[2022-12-14] MEDS: Ipratropium/Albuterol 3 ML NEB NEB SCH ×3 (06:53→18:59)
[2022-12-14 07:03] LABS: Albumin 3.1 g/dL (3.4-4.8); Anion Gap 11 mmol/L (10-20); BUN (Urea Nitrogen) 19 mg/dL (9.8-20.1); BUN/Creatinine Ratio 15.83; CK (CPK) 1203 U/L (29-168); Calc. Creatinine Clearance 55 mL/min (70-130); Calcium 8.9 mg/dL (7.8-10.44); Carbon Dioxide 30 mmol/L (23-31); Chloride 105 mmol/L (98-107); Estimated GFR 48; Glucose 88 mg/dL (83-110); Magnesium 1.8 mg/dL (1.6-2.6); Phosphorus 3.9 mg/dL (2.3-4.7); Potassium 3.4 mmol/L (3.5-5.1); Sodium 143 mmol/L (136-145)
[2022-12-14] MEDS ORDERED: Magnesium 2 GM/50 ML(in water) 2 GM in Premix Bag 1 BAG IVPB SCH (08:00)
[2022-12-14] MEDS ORDERED: Potassium Chloride 20 MEQ TAB PO SCH (08:00)
[2022-12-14] MEDS: Multivitamin W/ Minerals 1 TAB PO SCH (08:36)
[2022-12-14] MEDS: Spironolactone 25 MG TAB PO SCH (08:36)
[2022-12-14] MEDS: Carvedilol 6.25 MG TAB PO SCH ×2 (08:36→17:40)
[2022-12-14] MEDS: Clopidogrel Bisulfate 75 MG TAB PO SCH (08:36)
[2022-12-14] MEDS: Ferrous Gluconate 324 MG TAB PO SCH ×2 (08:37→21:50)
[2022-12-14] MEDS: Polyethylene Glycol 3350 17 GM Packet PO SCH (08:37)
[2022-12-14] MEDS: Senokot S 8.6-50 MG TAB PO SCH ×2 (08:37→21:50)
[2022-12-14] MEDS: Rosuvastatin 20 MG TAB PO SCH (21:50)
[2022-12-15] MEDS: Acetaminophen 325 MG TAB PO SCH ×4 (00:18→17:35)
[2022-12-15] MEDS: HYDROcodone/Acetaminophen 10/325 mg Tablet PO PRN ×3 (04:43→17:54)
[2022-12-15] MEDS: Ipratropium/Albuterol 3 ML NEB NEB SCH ×3 (06:37→19:06)
[2022-12-15] MEDS: Polyethylene Glycol 3350 17 GM Packet PO SCH (09:10)
[2022-12-15] MEDS: Carvedilol 6.25 MG TAB PO SCH ×2 (09:10→17:54)
[2022-12-15] MEDS: Multivitamin W/ Minerals 1 TAB PO SCH (09:11)
[2022-12-15] MEDS: Senokot S 8.6-50 MG TAB PO SCH ×2 (09:11→21:24)
[2022-12-15] MEDS: Ferrous Gluconate 324 MG TAB PO SCH ×2 (09:11→21:25)
[2022-12-15] MEDS: Spironolactone 25 MG TAB PO SCH (09:11)
[2022-12-15] MEDS: Clopidogrel Bisulfate 75 MG TAB PO SCH (09:12)
[2022-12-15] MEDS ORDERED: Albuterol 200 PUFF (6.7GM INHALER) INH PRN (12:50)
[2022-12-15] MEDS: hydrALAZINE 25 MG TAB PO SCH ×2 (17:54→21:25)
[2022-12-15] MEDS ORDERED: Ipratropium/Albuterol 3 ML NEB NEB SCH ×2 (19:00)
[2022-12-15] MEDS ORDERED: Rosuvastatin 20 MG TAB PO SCH (21:00)
[2022-12-16] MEDS: HYDROcodone/Acetaminophen 10/325 mg Tablet PO PRN (00:54)
[2022-12-16] MEDS: Acetaminophen 325 MG TAB PO SCH ×4 (00:55→17:14)
[2022-12-16 06:48] LABS: #Eosinphils 0.3 thou/uL (0.0-0.7); #Monocytes 0.9 thou/uL (0.11-0.59); #Neutrophils 7.2 thou/uL (1.40-6.50); %Basophils 0.3 % (0.0-1.0); %Eosinophils 2.5 % (0.0-10.0); %Lymphocytes 18.2 % (21.0-51.0); %Monocytes 8.5 % (0.0-10.0); Hematocrit 31.6 % (36.0-47.0); Mean Corpuscular HGB CONC 31.6 g/dL (32.0-36.0); Mean Corpuscular Hemoglobin 32.7 pg (27.0-31.0); Mean Corpuscular Volume 103.3 fl (78.0-98.0); Mean Platelet Volume 9.9 fL (7.4-10.4); Platelet Count 161 10x3/uL (130-400); RBC Distribution Width 19.1 % (11.5-14.5); Red Blood Cell (RBC) Count 3.06 mill/uL (4.20-5.40); White Blood Cell (WBC) Count 10.3 10x3/uL (4.8-10.8)
[2022-12-16] MEDS: Ipratropium/Albuterol 3 ML NEB NEB SCH ×2 (07:23→13:13)
[2022-12-16 07:30] LABS: Albumin 3.3 g/dL (3.4-4.8); Anion Gap 14 mmol/L (10-20); BUN (Urea Nitrogen) 16 mg/dL (9.8-20.1); BUN/Creatinine Ratio 14.81; CK (CPK) 784 U/L (29-168); Calc. Creatinine Clearance 61 mL/min (70-130); Carbon Dioxide 26 mmol/L (23-31); Chloride 100 mmol/L (98-107); Estimated GFR 54; Glucose 97 mg/dL (83-110); Phosphorus 3.9 mg/dL (2.3-4.7); Potassium 4.2 mmol/L (3.5-5.1); Sodium 136 mmol/L (136-145)
[2022-12-16] MEDS ORDERED: Spironolactone 100 MG TAB PO SCH (09:00)
[2022-12-16] MEDS ORDERED: Isosorbide Mononitrate 30 MG ER.TAB PO SCH (09:00)
[2022-12-16] MEDS ORDERED: Torsemide 10 MG TAB PO SCH (09:00)
[2022-12-16] MEDS: Multivitamin W/ Minerals 1 TAB PO SCH (09:43)
[2022-12-16] MEDS: Senokot S 8.6-50 MG TAB PO SCH (09:43)
[2022-12-16] MEDS: Ferrous Gluconate 324 MG TAB PO SCH (09:43)
[2022-12-16] MEDS: Polyethylene Glycol 3350 17 GM Packet PO SCH (09:43)
[2022-12-16] MEDS: Clopidogrel Bisulfate 75 MG TAB PO SCH (09:43)
[2022-12-16] MEDS: Carvedilol 6.25 MG TAB PO SCH ×2 (09:44→15:54)
[2022-12-16] MEDS: hydrALAZINE 25 MG TAB PO SCH ×2 (09:44→15:54)
[2022-12-16] MEDS: Spironolactone 25 MG TAB PO SCH (09:52)
[2022-12-16] MEDS ORDERED: Ipratropium/Albuterol 3 ML NEB NEB PRN (13:35)
[2022-12-16 15:43] VITALS: BP 98/66; TEMP 98.3
[2022-12-16] MEDS: traMADol HCl 50 MG TAB PO PRN (17:15)
== END 2022-12-16 18:45 | DRG 956 ==
LOC: ERS 00:03 → INTOOBSV 04:36 → SURG A 04:36 → OBSVTOIN 12-02 10:55 → CCU 12-04 17:51 → IMCU/EMU 12-06 17:00 → SURG A 12-07 18:56
PROVIDERS: ADMIT Specialist; ATTEND Specialist
PROC: 0SR904Z Replacement of Right Hip Joint with Ceramic on Polyethylene Synthetic Substitute, Open Approach (ICD-10-PCS; principal; 2022-12-03)
PROC: 3E033XZ Introduction of Vasopressor into Peripheral Vein, Percutaneous Approach (ICD-10-PCS; 2022-12-03)
PROC: 30233J1 Transfusion of Nonautologous Serum Albumin into Peripheral Vein, Percutaneous Approach (ICD-10-PCS; 2022-12-04)
DX: S72.91XA Unspecified fracture of right femur, initial encounter for closed fracture (principal); T79.6XXA Traumatic ischemia of muscle, initial encounter; G93.41 Metabolic encephalopathy; I21.A1 Myocardial infarction type 2; R57.8 Other shock; J96.21 Acute and chronic respiratory failure with hypoxia; M87.9 Osteonecrosis, unspecified; I42.9 Cardiomyopathy, unspecified; N17.9 Acute kidney failure, unspecified; I13.0 Hypertensive heart and chronic kidney disease with heart failure and stage 1 through stage 4 chronic kidney disease, or unspecified chronic kidney disease; E87.21 Acute metabolic acidosis; I50.32 Chronic diastolic (congestive) heart failure; N18.30 Chronic kidney disease, stage 3 unspecified; E86.9 Volume depletion, unspecified; E87.5 Hyperkalemia; E87.6 Hypokalemia; I95.9 Hypotension, unspecified; J44.9 Chronic obstructive pulmonary disease, unspecified; I25.10 Atherosclerotic heart disease of native coronary artery without angina pectoris; E11.22 Type 2 diabetes mellitus with diabetic chronic kidney disease; W19.XXXA Unspecified fall, initial encounter; D72.829 Elevated white blood cell count, unspecified; Z96.642 Presence of left artificial hip joint; Z95.1 Presence of aortocoronary bypass graft; Z95.5 Presence of coronary angioplasty implant and graft; Z90.49 Acquired absence of other specified parts of digestive tract; Z82.49 Family history of ischemic heart disease and other diseases of the circulatory system; Z98.51 Tubal ligation status; Z88.5 Allergy status to narcotic agent; Z99.81 Dependence on supplemental oxygen; D69.6 Thrombocytopenia, unspecified; I27.29 Other secondary pulmonary hypertension
CPT/HCPCS: 36415; 36416; 70450; 71045; 72170; 76770; 78451; 80048; 80053; 80069; 81001; 82533; 82550; 82570; 83735; 83880; 84100; 84145; 84156; 84300; 84484; 84540; 85025; 85027; 85610; 85730; 86850; 86900; 86901; 87086; 93005; 93010; 93306; 93970; 94640; 96365; 96366; 96367; 96375; 96376; A4217; A9540; C1776; G0378; G0390; J1100; J1644; J1720; J1815; J1940; J2310; J2370; J2405; J2543; J2704; J3010; J3370; J3475; J3480; J3490; J7030; J7050; J7070; J7120; J7620; P9047; S0020; S0028

== ENCOUNTER 2023-01-12 08:11 | Inpatient (IN) | payer OTHER, MEDICARE ==
[2023-01-12 09:13] LABS: PTT 23.2 sec (22.9-36.1)
[2023-01-12 09:14] LABS: D-Dimer Test 3.36 *mcg/mL (0.27-0.43); INR-International Normal Ratio 1.4; Prothrombin Time 17.8 sec (12.0-14.7)
[2023-01-12 09:21] LABS: ALT (SGPT) 67 U/L (8-55); AST (SGOT) 166 U/L (5-34); Albumin 3.6 g/dL (3.4-4.8); Alkaline Phosphatase 105 U/L (40-110); Anion Gap 28 mmol/L (10-20); BUN (Urea Nitrogen) 12 mg/dL (9.8-20.1); CK (CPK) 156 U/L (29-168); Calc. Creatinine Clearance 0 mL/min (70-130); Calcium 8.3 mg/dL (7.8-10.44); Carbon Dioxide 29 mmol/L (23-31); Chloride 95 mmol/L (98-107); Estimated GFR 33; Globulin 2.6 g/dL (2.4-3.5); Glucose 97 mg/dL (83-110); Magnesium 1.4 mg/dL (1.6-2.6); Potassium 2.8 mmol/L (3.5-5.1); Protein, Total 6.2 g/dL (5.8-8.1); Sodium 149 mmol/L (136-145)
[2023-01-12] MEDS ORDERED: Iopamidol 370 76% 100 ML VIAL ONE (09:25)
[2023-01-12 09:48] LABS: #Monocytes 0.7 thou/uL (0.11-0.59); #Neutrophils 7.3 thou/uL (1.40-6.50); %Basophils 0.1 % (0.0-1.0); %Eosinophils 0.1 % (0.0-10.0); %Lymphocytes 7.8 % (21.0-51.0); %Monocytes 7.8 % (0.0-10.0); %Neutrophils 82.8 % (42.0-75.0); Hematocrit 21.4 % (36.0-47.0); Hemoglobin 6.5 g/dL (12.0-16.0); Mean Corpuscular HGB CONC 30.4 g/dL (32.0-36.0); Mean Corpuscular Hemoglobin 33.9 pg (27.0-31.0); Mean Corpuscular Volume 111.5 fl (78.0-98.0); Mean Platelet Volume 11.6 fL (7.4-10.4); RBC Distribution Width 21.1 % (11.5-14.5); Red Blood Cell (RBC) Count 1.92 mill/uL (4.20-5.40); White Blood Cell (WBC) Count 8.9 10x3/uL (4.8-10.8)
[2023-01-12 09:51] LABS: Platelet Count 58 10x3/uL (130-400)
[2023-01-12 10:19] LABS: Anisocytosis SLIGHT = 6-15 cells HPF (0-5); Burr Cells SLIGHT = 2-5 cells HPF (0-1); CellaVision Operator ID LAB.GE; Hypochromia SLIGHT = 6-15 cells HPF (0-5); Large Platelets 1.9 % (0-5); Macrocytosis MODERATE=16-30 cells HPF (0-5); Ovalocytes SLIGHT = 2-5 cells HPF (0-1); Platelet Adequacy Comment Platelets Decreased; Polychromasia SLIGHT = 2-3 cells HPF (0-2); Schistocytes SLIGHT = 2-5 cells HPF (0-1)
[2023-01-12 10:21] LABS: Troponin I 2.297 ng/mL (< 0.028)
[2023-01-12] MEDS ORDERED: Cefepime 2 GM VIAL ONE ×2 (10:22→11:00)
[2023-01-12] MEDS ORDERED: Magnesium 2 GM/50 ML BAG (IN WATER) ONE (10:22)
[2023-01-12] MEDS ORDERED: NOREPINEPHRINE 8 MG/250 ML-D5W 250 ML ONE (10:23)
[2023-01-12] MEDS ORDERED: Vancomycin 1 GM/200 ML (FROZEN) BAG ONE (11:49)
[2023-01-12 12:17] LABS: Lactic Acid 5.9 mmol/L (0.5-2.2)
[2023-01-12] MEDS ORDERED: Potassium Chloride 20 MEQ/100 ML PREMIX BAG ONE ×2 (13:02→13:04)
[2023-01-12 13:43] LABS: Troponin I 14.087 ng/mL (< 0.028)
[2023-01-12] MEDS ORDERED: Communication Order-Pharmacy FS ONE (14:03)
[2023-01-12] MEDS ORDERED: Acetaminophen 325 MG TAB PO PRN (14:03)
[2023-01-12] MEDS ORDERED: Senokot S 8.6-50 MG TAB PO PRN (14:03)
[2023-01-12] MEDS ORDERED: Ondansetron PF 4 MG/2 ML Vial IVP PRN (14:03)
[2023-01-12] MEDS ORDERED: Calcium Carbonate 500 MG ChewTAB PO PRN (14:03)
[2023-01-12] MEDS ORDERED: Pantoprazole 40 MG VIAL IVP SCH (14:30)
[2023-01-12 14:37] LABS: Bilirubin Negative (Negative); Blood, Urine Negative (Negative); Glucose, Urine (Dipstick) Negative (Negative); Ketone, Urine Negative (Negative); Leukocyte Negative (Negative); Nitrite Negative (Negative); Protein, Urine (Dipstick) 100 mg/dL (Neg-Trace)
[2023-01-12 14:38] LABS: Clarity Clear (Clear)
[2023-01-12 14:47] LABS: CAUTI Indications for Culture Dysuria,urgency,freq; RBC/HPF 0-3 HPF (0-3)
[2023-01-12 14:48] LABS: Bacteria/HPF Rare-Few HPF (None Seen); Urine Culture Reflex No No
[2023-01-12 15:45] LABS: Lactic Acid 3.6 mmol/L (0.5-2.2)
[2023-01-12] MEDS: Sodium Chloride 0.9% 1,000 ML IV SCH ×2 (15:51→22:57)
[2023-01-12] MEDS ORDERED: Vancomycin Dose by Levels Sliding Scale (Wt <71) FS SCH (16:00)
[2023-01-12] MEDS ORDERED: Vancomycin HCl 500 MG in Sodium Chloride 0.9% 100 ML IVPB SCH (16:00)
[2023-01-12 16:16] LABS: Troponin I 24.558 ng/mL (< 0.028)
[2023-01-12] MEDS ORDERED: Electrolyte Replacement Protocol FS SCH (17:00)
[2023-01-12] MEDS ORDERED: Albuterol 200 PUFF (6.7GM INHALER) INH PRN (18:43)
[2023-01-12 19:10] LABS: Anion Gap 21 mmol/L (10-20); BUN (Urea Nitrogen) 14 mg/dL (9.8-20.1); Calc. Creatinine Clearance 26 mL/min (70-130); Calcium 7.9 mg/dL (7.8-10.44); Carbon Dioxide 29 mmol/L (23-31); Chloride 98 mmol/L (98-107); Estimated GFR 25; Glucose 102 mg/dL (83-110); Magnesium 1.8 mg/dL (1.6-2.6); Potassium 2.8 mmol/L (3.5-5.1); Sodium 145 mmol/L (136-145)
[2023-01-12 19:19] LABS: Phosphorus 4.2 mg/dL (2.3-4.7)
[2023-01-12] MEDS ORDERED: Magnesium 2 GM/50 ML(in water) 2 GM in Premix 1 BAG IVPB SCH (21:00)
[2023-01-12 21:42] LABS: Lactic Acid 2.6 mmol/L (0.5-2.2)
[2023-01-12] MEDS: Ipratropium Bromide 2.5 ml Neb NEB SCH ×2 (21:52→21:54)
[2023-01-12] MEDS: Potassium Chloride 40 MEQ in Premix 1 BAG IVPB SCH (22:55)
[2023-01-12] MEDS: Pantoprazole 40 MG VIAL IVP SCH (22:56)
[2023-01-13] MEDS ORDERED: Lactated Ringer's 500 ML IV SCH (00:15)
[2023-01-13 00:43] LABS: #Monocytes 1.1 thou/uL (0.11-0.59); #Neutrophils 8.7 thou/uL (1.40-6.50); %Basophils 0.2 % (0.0-1.0); %Eosinophils 0.1 % (0.0-10.0); %Lymphocytes 14.9 % (21.0-51.0); %Monocytes 9.5 % (0.0-10.0); %Neutrophils 74.7 % (42.0-75.0); Mean Corpuscular HGB CONC 32.3 g/dL (32.0-36.0); Mean Corpuscular Hemoglobin 32.5 pg (27.0-31.0); Mean Platelet Volume 11.9 fL (7.4-10.4); RBC Distribution Width 22.2 % (11.5-14.5); Red Blood Cell (RBC) Count 3.69 mill/uL (4.20-5.40); White Blood Cell (WBC) Count 11.6 10x3/uL (4.8-10.8)
[2023-01-13 00:46] LABS: Hematocrit 37.1 % (36.0-47.0); Mean Corpuscular Volume 100.5 fl (78.0-98.0); Platelet Count 63 10x3/uL (130-400)
[2023-01-13] MEDS: Potassium Chloride 40 MEQ in Premix 1 BAG IVPB SCH (00:49)
[2023-01-13] MEDS ORDERED: NOREPINEPHRINE 8 MG/250 ML-D5W 250 ML ONE (01:46)
[2023-01-13 03:49] LABS: ALT (SGPT) 202 U/L (8-55); AST (SGOT) 586 U/L (5-34); Albumin 3.3 g/dL (3.4-4.8); Alkaline Phosphatase 89 U/L (40-110); Anion Gap 17 mmol/L (10-20); BUN (Urea Nitrogen) 17 mg/dL (9.8-20.1); Bilirubin, Total 3.2 mg/dL (0.2-1.2); Calc. Creatinine Clearance 24 mL/min (70-130); Calcium 7.5 mg/dL (7.8-10.44); Carbon Dioxide 29 mmol/L (23-31); Chloride 102 mmol/L (98-107); Estimated GFR 22; Globulin 2.6 g/dL (2.4-3.5); Glucose 92 mg/dL (83-110); Potassium 3.8 mmol/L (3.5-5.1); Protein, Total 5.9 g/dL (5.8-8.1); Sodium 144 mmol/L (136-145)
[2023-01-13] MEDS ORDERED: Calcium Gluc 4.6 MEQ/10 ML (100 MG/ML) SLOW IVP SCH (04:00)
[2023-01-13] MEDS ORDERED: NOREPINEPHRINE 8 MG/250 ML-D5W 250 ML IVPB SCH (04:30)
[2023-01-13 05:05] LABS: #Monocytes 1.4 thou/uL (0.11-0.59); #Neutrophils 9.4 thou/uL (1.40-6.50); %Basophils 0.2 % (0.0-1.0); %Eosinophils 0.1 % (0.0-10.0); %Lymphocytes 15.4 % (21.0-51.0); %Monocytes 10.6 % (0.0-10.0); %Neutrophils 72.7 % (42.0-75.0); Hematocrit 39.6 % (36.0-47.0); Mean Corpuscular HGB CONC 32.8 g/dL (32.0-36.0); Mean Corpuscular Hemoglobin 32.3 pg (27.0-31.0); Mean Corpuscular Volume 98.5 fl (78.0-98.0); Mean Platelet Volume 11.7 fL (7.4-10.4); RBC Distribution Width 22.5 % (11.5-14.5); Red Blood Cell (RBC) Count 4.02 mill/uL (4.20-5.40)
[2023-01-13 05:17] LABS: Platelet Count 64 10x3/uL (130-400)
[2023-01-13] MEDS ORDERED: Sodium Chloride 0.9% 500 ML IV SCH ×2 (06:00→06:15)
[2023-01-13 06:33] LABS: Phosphorus 4.5 mg/dL (2.3-4.7)
[2023-01-13 06:51] LABS: ALT (SGPT) 274 U/L (8-55); AST (SGOT) 753 U/L (5-34); Albumin 3.5 g/dL (3.4-4.8); Alkaline Phosphatase 95 U/L (40-110); Anion Gap 19 mmol/L (10-20); BUN (Urea Nitrogen) 17 mg/dL (9.8-20.1); Bilirubin, Total 3.1 mg/dL (0.2-1.2); Calc. Creatinine Clearance 23 mL/min (70-130); Calcium 7.8 mg/dL (7.8-10.44); Carbon Dioxide 29 mmol/L (23-31); Cardiac Risk 3.2 (Less than 4.5); Chloride 101 mmol/L (98-107); Cholesterol 76 mg/dl (< 200 Desired); Estimated GFR 21; Globulin 2.7 g/dL (2.4-3.5); Glucose 90 mg/dL (83-110); HDL Cholesterol 24 mg/dL (>60 Neg Risk); LDL Cholesterol, Calculated 29 mg/dL; Magnesium 2.5 mg/dL (1.6-2.6); Potassium 3.9 mmol/L (3.5-5.1); Protein, Total 6.2 g/dL (5.8-8.1); Sodium 145 mmol/L (136-145); Triglycerides 113 mg/dL (Less than 150)
[2023-01-13] MEDS: Ipratropium Bromide 2.5 ml Neb NEB SCH ×4 (07:12→23:24)
[2023-01-13 07:16] LABS: HBSAB Concentration Less than 8.00 mIU/mL; HBSAg Index 0.21 S/CO (0-0.99); Hep B Surf AB Non-Reactive (NonReactive); Hep B Surf Ag Non-Reactive S/CO (NonReactive); Hep C IgG Ab Non-Reactive S/CO (NonReactive); Hep C Index 0.06 S/CO (0-0.79)
[2023-01-13] MEDS ORDERED: Albumin 25% 25 GM/100 ML BOT IVPB SCH (07:45)
[2023-01-13] MEDS: Pantoprazole 40 MG VIAL IVP SCH ×2 (07:57→20:22)
[2023-01-13] MEDS ORDERED: DOBUTamine 500 mg/250 ml 500 MG in Premix 1 BAG IVPB SCH (09:00)
[2023-01-13] MEDS ORDERED: Cefepime 1 GM in Sodium Chloride 0.9% 100 ML IVPB SCH (11:00)
[2023-01-13] MEDS: Hydrocortisone Sod Succ/PF 100 mg/2 ml Vial IVP SCH ×2 (11:24→18:08)
[2023-01-13] MEDS ORDERED: Glucagon 1 MG/ML KIT IM PRN (12:11)
[2023-01-13] MEDS ORDERED: Insulin Regular 300 UNITS/3 ML VIAL SC PRN (12:11)
[2023-01-13] MEDS ORDERED: Dextrose 50% Abboject 50 ML SYRINGE SLOW IVP PRN (12:11)
[2023-01-13] MEDS ORDERED: Dextrose 5% in Water 1,000 ML IV PRN (12:11)
[2023-01-13] MEDS: Insulin Regular 300 UNITS/3 ML VIAL SC PRN ×2 (12:43→17:40)
[2023-01-13 16:12] LABS: Vancomycin, Random 18.1 ug/mL (See Comment)
[2023-01-13] MEDS ORDERED: Vancomycin HCl 500 MG in Sodium Chloride 0.9% 100 ML IVPB SCH (16:45)
[2023-01-13] MEDS ORDERED: Digoxin 0.5 MG/2 ML AMP SLOW IVP SCH ×3 (17:15→19:00)
[2023-01-13] MEDS ORDERED: Lactated Ringer's 1,000 ML IV SCH (19:00)
[2023-01-13] MEDS: Sodium Chloride 0.9% 1,000 ML IV SCH (20:21)
[2023-01-14] MEDS: Hydrocortisone Sod Succ/PF 100 mg/2 ml Vial IVP SCH ×3 (04:15→09:18)
[2023-01-14] MEDS: Sodium Chloride 0.9% 1,000 ML IV SCH ×2 (04:16→19:59)
[2023-01-14 04:26] LABS: #Monocytes 0.6 thou/uL (0.11-0.59); %Basophils 0.1 % (0.0-1.0); %Lymphocytes 8.1 % (21.0-51.0); %Monocytes 6.3 % (0.0-10.0); %Neutrophils 84.9 % (42.0-75.0); Hematocrit 32.6 % (36.0-47.0); Hemoglobin 10.7 g/dL (12.0-16.0); Mean Corpuscular HGB CONC 32.8 g/dL (32.0-36.0); Mean Corpuscular Hemoglobin 32.6 pg (27.0-31.0); Mean Corpuscular Volume 99.4 fl (78.0-98.0); Mean Platelet Volume 11.8 fL (7.4-10.4); RBC Distribution Width 21.6 % (11.5-14.5); Red Blood Cell (RBC) Count 3.28 mill/uL (4.20-5.40); White Blood Cell (WBC) Count 9.4 10x3/uL (4.8-10.8)
[2023-01-14 04:27] VITALS: BMI 28.5
[2023-01-14 04:32] LABS: Platelet Count 40 10x3/uL (130-400)
[2023-01-14 04:56] LABS: ALT (SGPT) 360 U/L (8-55); AST (SGOT) 648 U/L (5-34); Albumin 3.7 g/dL (3.4-4.8); Alkaline Phosphatase 80 U/L (40-110); Anion Gap 15 mmol/L (10-20); BUN (Urea Nitrogen) 23 mg/dL (9.8-20.1); Bilirubin, Total 1.6 mg/dL (0.2-1.2); Calc. Creatinine Clearance 21 mL/min (70-130); Calcium 7.6 mg/dL (7.8-10.44); Carbon Dioxide 27 mmol/L (23-31); Chloride 102 mmol/L (98-107); Estimated GFR 19; Globulin 2.2 g/dL (2.4-3.5); Glucose 154 mg/dL (83-110); Potassium 3.4 mmol/L (3.5-5.1); Protein, Total 5.9 g/dL (5.8-8.1); Sodium 141 mmol/L (136-145)
[2023-01-14 05:00] LABS: Troponin I 10.143 ng/mL (< 0.028)
[2023-01-14] MEDS ORDERED: Potassium Chloride 20 MEQ TAB PO SCH (08:00)
[2023-01-14] MEDS: Ipratropium Bromide 2.5 ml Neb NEB SCH ×3 (08:04→19:08)
[2023-01-14] MEDS: Digoxin 0.5 MG/2 ML AMP SLOW IVP SCH (09:17)
[2023-01-14] MEDS: Pantoprazole 40 MG VIAL IVP SCH ×2 (09:18→20:56)
[2023-01-14] MEDS ORDERED: predniSONE 20 MG TAB PO SCH (10:00)
[2023-01-14] MEDS ORDERED: Potassium Chloride 40 MEQ in Premix 1 BAG IVPB SCH (10:15)
[2023-01-14 10:28] LABS: Hematocrit 33.9 % (36.0-47.0); Hemoglobin 11.1 g/dL (12.0-16.0)
[2023-01-14] MEDS: Cefdinir 300 MG CAP PO SCH (10:55)
[2023-01-14] MEDS: Insulin Regular 300 UNITS/3 ML VIAL SC PRN ×2 (10:56→17:26)
[2023-01-15] MEDS: Ipratropium Bromide 2.5 ml Neb NEB SCH ×4 (01:13→19:07)
[2023-01-15] MEDS: Sodium Chloride 0.9% 1,000 ML IV SCH (05:21)
[2023-01-15 05:55] LABS: #Monocytes 1.1 thou/uL (0.11-0.59); #Neutrophils 8.8 thou/uL (1.40-6.50); %Basophils 0.2 % (0.0-1.0); %Lymphocytes 8.7 % (21.0-51.0); %Monocytes 9.6 % (0.0-10.0); %Neutrophils 80.3 % (42.0-75.0); Hematocrit 34.5 % (36.0-47.0); Hemoglobin 11.4 g/dL (12.0-16.0); Mean Corpuscular Hemoglobin 31.9 pg (27.0-31.0); Mean Corpuscular Volume 96.6 fl (78.0-98.0); Mean Platelet Volume 12.6 fL (7.4-10.4); RBC Distribution Width 20.8 % (11.5-14.5); Red Blood Cell (RBC) Count 3.57 mill/uL (4.20-5.40)
[2023-01-15 06:31] LABS: Anion Gap 18 mmol/L (10-20); BUN (Urea Nitrogen) 28 mg/dL (9.8-20.1); Calc. Creatinine Clearance 32 mL/min (70-130); Carbon Dioxide 22 mmol/L (23-31); Chloride 106 mmol/L (98-107); Estimated GFR 28; Glucose 135 mg/dL (83-110); Sodium 142 mmol/L (136-145)
[2023-01-15 06:33] LABS: Hep A IgM AB Non-Reactive S/CO (NonReactive); Hep A IgM S/CO 0.31 S/CO (0-0.79)
[2023-01-15 06:40] LABS: Platelet Count 48 10x3/uL (130-400)
[2023-01-15] MEDS ORDERED: predniSONE 20 MG TAB PO SCH (08:00)
[2023-01-15] MEDS ORDERED: Furosemide 40 MG/4 ML VIAL SLOW IVP SCH (08:30)
[2023-01-15] MEDS ORDERED: FLU VACC QS2023(65UP)/MF59C/PF 60 MCG/0.5 ML SYRINGE IM ONE (09:00)
[2023-01-15] MEDS: Cefdinir 300 MG CAP PO SCH (09:41)
[2023-01-15] MEDS: Digoxin 0.5 MG/2 ML AMP SLOW IVP SCH (09:41)
[2023-01-15] MEDS: Furosemide 20 MG/2 ML VIAL SLOW IVP SCH (15:56)
[2023-01-16] MEDS: Ipratropium Bromide 2.5 ml Neb NEB SCH ×4 (01:25→18:14)
[2023-01-16 03:55] LABS: #Monocytes 0.9 thou/uL (0.11-0.59); #Neutrophils 5.4 thou/uL (1.40-6.50); %Basophils 0.1 % (0.0-1.0); %Eosinophils 0.5 % (0.0-10.0); %Lymphocytes 16.6 % (21.0-51.0); %Monocytes 11.5 % (0.0-10.0); %Neutrophils 70.8 % (42.0-75.0); Hematocrit 31.4 % (36.0-47.0); Hemoglobin 10.3 g/dL (12.0-16.0); Mean Corpuscular HGB CONC 32.8 g/dL (32.0-36.0); Mean Corpuscular Hemoglobin 32.5 pg (27.0-31.0); Mean Corpuscular Volume 99.1 fl (78.0-98.0); Mean Platelet Volume 11.7 fL (7.4-10.4); Red Blood Cell (RBC) Count 3.17 mill/uL (4.20-5.40); White Blood Cell (WBC) Count 7.6 10x3/uL (4.8-10.8)
[2023-01-16 04:20] LABS: ALT (SGPT) 208 U/L (8-55); AST (SGOT) 146 U/L (5-34); Albumin 3.5 g/dL (3.4-4.8); Alkaline Phosphatase 86 U/L (40-110); Bilirubin, Direct 1.2 mg/dL (0.1-0.3); Bilirubin, Total 1.7 mg/dL (0.2-1.2); Protein, Total 5.8 g/dL (5.8-8.1)
[2023-01-16 04:23] LABS: Anion Gap 14 mmol/L (10-20); BUN (Urea Nitrogen) 23 mg/dL (9.8-20.1); Calc. Creatinine Clearance 50 mL/min (70-130); Carbon Dioxide 29 mmol/L (23-31); Chloride 103 mmol/L (98-107); Estimated GFR 48; Glucose 80 mg/dL (83-110); Potassium 2.9 mmol/L (3.5-5.1); Sodium 143 mmol/L (136-145)
[2023-01-16 04:31] LABS: Platelet Count 62 10x3/uL (130-400)
[2023-01-16] MEDS: Furosemide 20 MG/2 ML VIAL SLOW IVP SCH ×2 (05:57→14:40)
[2023-01-16] MEDS: Cefdinir 300 MG CAP PO SCH (08:56)
[2023-01-16] MEDS ORDERED: Carvedilol 3.125 MG TAB PO SCH ×2 (09:15→17:00)
[2023-01-16] MEDS ORDERED: Potassium Chloride 20 MEQ TAB PO SCH (17:45)
[2023-01-16] MEDS: Ferrous Gluconate 324 MG TAB PO SCH (20:55)
[2023-01-16] MEDS ORDERED: Carvedilol 6.25 MG TAB PO SCH (21:00)
[2023-01-17] MEDS: Ipratropium Bromide 2.5 ml Neb NEB SCH ×4 (02:16→18:42)
[2023-01-17 03:33] LABS: #Eosinphils 0.1 thou/uL (0.0-0.7); #Monocytes 0.8 thou/uL (0.11-0.59); #Neutrophils 5.4 thou/uL (1.40-6.50); %Basophils 0.2 % (0.0-1.0); %Eosinophils 1.1 % (0.0-10.0); %Lymphocytes 22.1 % (21.0-51.0); %Monocytes 9.8 % (0.0-10.0); %Neutrophils 65.8 % (42.0-75.0); Hematocrit 33.5 % (36.0-47.0); Hemoglobin 10.9 g/dL (12.0-16.0); Mean Corpuscular HGB CONC 32.5 g/dL (32.0-36.0); Mean Corpuscular Hemoglobin 32.4 pg (27.0-31.0); Mean Corpuscular Volume 99.7 fl (78.0-98.0); Mean Platelet Volume 10.8 fL (7.4-10.4); RBC Distribution Width 20.9 % (11.5-14.5); Red Blood Cell (RBC) Count 3.36 mill/uL (4.20-5.40); White Blood Cell (WBC) Count 8.2 10x3/uL (4.8-10.8)
[2023-01-17 03:55] LABS: ALT (SGPT) 161 U/L (8-55); AST (SGOT) 87 U/L (5-34); Albumin 3.4 g/dL (3.4-4.8); Alkaline Phosphatase 87 U/L (40-110); Anion Gap 16 mmol/L (10-20); BUN (Urea Nitrogen) 25 mg/dL (9.8-20.1); Bilirubin, Total 1.9 mg/dL (0.2-1.2); Calc. Creatinine Clearance 53 mL/min (70-130); Calcium 8.2 mg/dL (7.8-10.44); Carbon Dioxide 28 mmol/L (23-31); Chloride 101 mmol/L (98-107); Estimated GFR 52; Globulin 2.4 g/dL (2.4-3.5); Glucose 98 mg/dL (83-110); Potassium 3.7 mmol/L (3.5-5.1); Protein, Total 5.8 g/dL (5.8-8.1); Sodium 141 mmol/L (136-145)
[2023-01-17 05:43] LABS: Platelet Count 61 10x3/uL (130-400)
[2023-01-17] MEDS: Furosemide 20 MG/2 ML VIAL SLOW IVP SCH ×2 (05:57→13:45)
[2023-01-17] MEDS ORDERED: Carvedilol 6.25 MG TAB PO SCH (09:00)
[2023-01-17] MEDS: Ferrous Gluconate 324 MG TAB PO SCH ×2 (09:38→21:12)
[2023-01-17] MEDS: Cefdinir 300 MG CAP PO SCH (09:38)
[2023-01-17] MEDS: Potassium Chloride 20 MEQ TAB PO SCH (09:38)
[2023-01-17] MEDS: Carvedilol 3.125 MG TAB PO SCH ×2 (09:38→17:24)
[2023-01-17] MEDS: Insulin Regular 300 UNITS/3 ML VIAL SC PRN (12:36)
[2023-01-18] MEDS: Ipratropium Bromide 2.5 ml Neb NEB SCH ×4 (04:20→19:25)
[2023-01-18] MEDS: Furosemide 20 MG/2 ML VIAL SLOW IVP SCH (06:14)
[2023-01-18 06:30] LABS: ALT (SGPT) 112 U/L (8-55); AST (SGOT) 54 U/L (5-34); Albumin 3.3 g/dL (3.4-4.8); Alkaline Phosphatase 88 U/L (40-110); Anion Gap 13 mmol/L (10-20); BUN (Urea Nitrogen) 24 mg/dL (9.8-20.1); Bilirubin, Total 1.8 mg/dL (0.2-1.2); Calc. Creatinine Clearance 60 mL/min (70-130); Calcium 8.7 mg/dL (7.8-10.44); Carbon Dioxide 28 mmol/L (23-31); Chloride 104 mmol/L (98-107); Estimated GFR 65; Globulin 2.5 g/dL (2.4-3.5); Glucose 93 mg/dL (83-110); Protein, Total 5.8 g/dL (5.8-8.1); Sodium 141 mmol/L (136-145)
[2023-01-18] MEDS: Potassium Chloride 20 MEQ TAB PO SCH (08:07)
[2023-01-18] MEDS: Ferrous Gluconate 324 MG TAB PO SCH ×2 (08:08→21:09)
[2023-01-18] MEDS: Carvedilol 3.125 MG TAB PO SCH (08:08)
[2023-01-18] MEDS: Empagliflozin 10 MG TAB PO SCH (10:02)
[2023-01-19] MEDS: Ipratropium Bromide 2.5 ml Neb NEB SCH ×4 (03:14→18:58)
[2023-01-19] MEDS: Potassium Chloride 20 MEQ TAB PO SCH (08:02)
[2023-01-19] MEDS: Furosemide 40 MG TAB PO SCH (08:02)
[2023-01-19] MEDS: Spironolactone 25 MG TAB PO SCH (08:02)
[2023-01-19] MEDS: Aspirin 81 mg Enteric Coated Tablet PO SCH (08:03)
[2023-01-19] MEDS: Empagliflozin 10 MG TAB PO SCH (08:03)
[2023-01-19] MEDS: Ferrous Gluconate 324 MG TAB PO SCH ×2 (08:03→20:06)
[2023-01-19] MEDS ORDERED: Polyethylene Glycol 3350 17 GM Packet PO PRN (08:40)
[2023-01-19] MEDS: Senokot S 8.6-50 MG TAB PO SCH ×2 (09:39→20:07)
[2023-01-20] MEDS: Ipratropium Bromide 2.5 ml Neb NEB SCH ×4 (02:24→18:36)
[2023-01-20 06:37] LABS: #Eosinphils 0.2 thou/uL (0.0-0.7); #Monocytes 0.9 thou/uL (0.11-0.59); #Neutrophils 9.1 thou/uL (1.40-6.50); %Basophils 0.3 % (0.0-1.0); %Eosinophils 1.3 % (0.0-10.0); %Lymphocytes 14.7 % (21.0-51.0); %Monocytes 7.2 % (0.0-10.0); %Neutrophils 75.7 % (42.0-75.0); Hematocrit 35.2 % (36.0-47.0); Hemoglobin 11.5 g/dL (12.0-16.0); Mean Corpuscular HGB CONC 32.7 g/dL (32.0-36.0); Mean Corpuscular Hemoglobin 32.5 pg (27.0-31.0); Mean Corpuscular Volume 99.4 fl (78.0-98.0); Mean Platelet Volume 12.3 fL (7.4-10.4); RBC Distribution Width 20.6 % (11.5-14.5); Red Blood Cell (RBC) Count 3.54 mill/uL (4.20-5.40)
[2023-01-20 06:49] LABS: Platelet Count 82 10x3/uL (130-400)
[2023-01-20] MEDS: Spironolactone 25 MG TAB PO SCH (08:27)
[2023-01-20] MEDS: Ferrous Gluconate 324 MG TAB PO SCH ×2 (08:27→20:36)
[2023-01-20] MEDS: Furosemide 40 MG TAB PO SCH (08:27)
[2023-01-20] MEDS: Aspirin 81 mg Enteric Coated Tablet PO SCH (08:27)
[2023-01-20] MEDS: Senokot S 8.6-50 MG TAB PO SCH ×2 (08:28→21:06)
[2023-01-20] MEDS: Potassium Chloride 20 MEQ TAB PO SCH (08:28)
[2023-01-20] MEDS: Empagliflozin 10 MG TAB PO SCH (08:28)
[2023-01-20 11:09] LABS: Calcium 9.7 mg/dL (7.8-10.44); Chloride 102 mmol/L (98-107); Potassium 4.3 mmol/L (3.5-5.1); Sodium 137 mmol/L (136-145)
[2023-01-20 11:10] LABS: Glucose 135 mg/dL (83-110)
[2023-01-20 11:11] LABS: Anion Gap 13 mmol/L (10-20); Carbon Dioxide 26 mmol/L (23-31)
[2023-01-20 11:13] LABS: Calc. Creatinine Clearance 51 mL/min (70-130); Estimated GFR 55
[2023-01-20 11:14] LABS: BUN (Urea Nitrogen) 20 mg/dL (9.8-20.1)
[2023-01-20 13:21] VITALS: BP 144/75
[2023-01-21] MEDS: Ipratropium Bromide 2.5 ml Neb NEB SCH ×3 (01:04→13:01)
[2023-01-21 08:38] VITALS: TEMP 97.3
[2023-01-21] MEDS: Ferrous Gluconate 324 MG TAB PO SCH (09:45)
[2023-01-21] MEDS: Furosemide 40 MG TAB PO SCH (09:45)
[2023-01-21] MEDS: Potassium Chloride 20 MEQ TAB PO SCH (09:45)
[2023-01-21] MEDS: Spironolactone 25 MG TAB PO SCH (09:45)
[2023-01-21] MEDS: Empagliflozin 10 MG TAB PO SCH (09:45)
[2023-01-21] MEDS: Aspirin 81 mg Enteric Coated Tablet PO SCH (09:45)
[2023-01-21] MEDS: Senokot S 8.6-50 MG TAB PO SCH (09:46)
== END 2023-01-21 13:01 | DRG 871 ==
LOC: ERS 08:11 → SUATTDRO 08:11 → CCU 12:33 → IMCU/EMU 01-14 21:37
PROVIDERS: ADMIT Internal Medicine; ATTEND Family Medicine
PROC: 02HV33Z Insertion of Infusion Device into Superior Vena Cava, Percutaneous Approach (ICD-10-PCS; principal; 2023-01-12)
PROC: B548ZZA Ultrasonography of Superior Vena Cava, Guidance (ICD-10-PCS; 2023-01-12)
PROC: 3E053XZ Introduction of Vasopressor into Peripheral Artery, Percutaneous Approach (ICD-10-PCS; 2023-01-12)
PROC: 3E03329 Introduction of Other Anti-infective into Peripheral Vein, Percutaneous Approach (ICD-10-PCS; 2023-01-12)
PROC: 30233N1 Transfusion of Nonautologous Red Blood Cells into Peripheral Vein, Percutaneous Approach (ICD-10-PCS; 2023-01-12)
PROC: 30233J1 Transfusion of Nonautologous Serum Albumin into Peripheral Vein, Percutaneous Approach (ICD-10-PCS; 2023-01-12)
PROC: 5A0945A Assistance with Respiratory Ventilation, 24-96 Consecutive Hours, High Flow/Velocity Cannula (ICD-10-PCS; 2023-01-14)
DX: A41.9 Sepsis, unspecified organism (principal); I21.4 Non-ST elevation (NSTEMI) myocardial infarction; R65.21 Severe sepsis with septic shock; R57.8 Other shock; R57.0 Cardiogenic shock; K72.00 Acute and subacute hepatic failure without coma; J96.01 Acute respiratory failure with hypoxia; I42.9 Cardiomyopathy, unspecified; E87.0 Hyperosmolality and hypernatremia; N17.9 Acute kidney failure, unspecified; K92.2 Gastrointestinal hemorrhage, unspecified; K80.10 Calculus of gallbladder with chronic cholecystitis without obstruction; R18.8 Other ascites; K76.6 Portal hypertension; G93.40 Encephalopathy, unspecified; J44.1 Chronic obstructive pulmonary disease with (acute) exacerbation; I47.20 Ventricular tachycardia, unspecified; I50.30 Unspecified diastolic (congestive) heart failure; I13.0 Hypertensive heart and chronic kidney disease with heart failure and stage 1 through stage 4 chronic kidney disease, or unspecified chronic kidney disease; E78.5 Hyperlipidemia, unspecified; I25.10 Atherosclerotic heart disease of native coronary artery without angina pectoris; I27.20 Pulmonary hypertension, unspecified; Z96.641 Presence of right artificial hip joint; D64.9 Anemia, unspecified; D69.6 Thrombocytopenia, unspecified; E87.6 Hypokalemia; E87.8 Other disorders of electrolyte and fluid balance, not elsewhere classified; N18.9 Chronic kidney disease, unspecified; J43.9 Emphysema, unspecified; E78.00 Pure hypercholesterolemia, unspecified; K74.60 Unspecified cirrhosis of liver; E83.42 Hypomagnesemia; I48.0 Paroxysmal atrial fibrillation; I08.1 Rheumatic disorders of both mitral and tricuspid valves; K59.00 Constipation, unspecified; K86.9 Disease of pancreas, unspecified; Z88.5 Allergy status to narcotic agent; Z99.81 Dependence on supplemental oxygen; Z95.1 Presence of aortocoronary bypass graft; Z95.810 Presence of automatic (implantable) cardiac defibrillator; Z79.51 Long term (current) use of inhaled steroids; Z79.899 Other long term (current) drug therapy
CPT/HCPCS: 36415; 36416; 36430; 36556; 51701; 70450; 71045; 71275; 74177; 76705; 80048; 80053; 80061; 80076; 80202; 81001; 82105; 82140; 82274; 82533; 82550; 83605; 83735; 83880; 84100; 84145; 84439; 84443; 84484; 85025; 85379; 85610; 85730; 86301; 86706; 86708; 86709; 86803; 86850; 86900; 86901; 87040; 87086; 87340; 93005; 93306; 94640; 94760; 96361; 96365; 96367; C9113; J0612; J0692; J1160; J1250; J1720; J1815; J1940; J2405; J3370; J3370-JW; J3475; J3480; J3490; J7050; J7120; J7512; P9016; P9047; Q9967

== ENCOUNTER 2023-05-05 13:02 | Outpatient (CLI) | payer OTHER, MEDICARE | END 2023-05-05 13:03 | disposition home or self-care (01) | LOC: RAD 13:02 | PROVIDERS: ATTEND Internal Medicine Critical Care Medicine | DX: R06.00 Dyspnea, unspecified (principal); J98.4 Other disorders of lung | CPT/HCPCS: 71046 ==

== ENCOUNTER 2023-12-20 13:42 | Outpatient (CLI) | payer OTHER, MEDICAID ==
[2023-12-20 15:20] LABS: #Basophils 0.04 10x3/uL (0.0-0.2); %Basophils 0.5 % (0.0-1.0); %Eosinophils 3.9 % (0.0-10.0); %Lymphocytes 25.1 % (21.0-51.0); %Monocytes 6.7 % (0.0-10.0); %Neutrophils 63.4 % (42.0-75.0); Hematocrit 51.1 % (36.0-47.0); Hemoglobin 16.9 g/dL (12.0-16.0); Mean Corpuscular HGB CONC 33.1 g/dL (32.0-36.0); Mean Corpuscular Hemoglobin 33.3 pg (27.0-31.0); Mean Corpuscular Volume 100.8 fL (78.0-98.0); Mean Platelet Volume 9.9 fL (7.4-10.4); Platelet Count 205 10x3/uL (130-400); RBC Distribution Width 15.8 % (11.5-14.5); Red Blood Cell (RBC) Count 5.07 mill/uL (4.20-5.40)
[2023-12-20 15:41] LABS: INR-International Normal Ratio 1.1; Prothrombin Time 14.2 sec (12.0-14.7)
[2023-12-20 15:46] LABS: Anion Gap 15 mmol/L (10-20); BUN (Urea Nitrogen) 21 mg/dL (9.8-20.1); Calc. Creatinine Clearance 0 mL/min (70-130); Calcium 10.7 mg/dL (7.8-10.44); Carbon Dioxide 24 mmol/L (23-31); Chloride 106 mmol/L (98-107); Estimated GFR 34; Glucose 151 mg/dL (83-110); Potassium 3.9 mmol/L (3.5-5.1); Sodium 141 mmol/L (136-145)
== END 2023-12-20 13:43 | disposition home or self-care (01) ==
LOC: LABBT 13:42
PROVIDERS: ATTEND Internal Medicine Cardiovascular Disease
DX: Z01.812 Encounter for preprocedural laboratory examination (principal); I47.20 Ventricular tachycardia, unspecified; I42.9 Cardiomyopathy, unspecified; I44.7 Left bundle-branch block, unspecified
CPT/HCPCS: 80048; 85025; 85610; 85730

== ENCOUNTER 2023-12-22 09:32 | Day surgery (SDC) | payer OTHER, MEDICAID ==
[2023-12-20 14:13] VITALS: BMI 22.4
[2023-12-22] MEDS ORDERED: Dexamethasone 20 MG/5 ML VIAL ONE (12:15)
[2023-12-22] MEDS ORDERED: Lidocaine 1% PF 5 ML VIAL ONE (12:15)
[2023-12-22] MEDS ORDERED: Ondansetron PF 4 MG/2 ML Vial ONE (12:15)
[2023-12-22] MEDS ORDERED: PHENYLEPHRINE-NS 100 MCG/ML 10 ML SYRINGE ONE (12:15)
[2023-12-22] MEDS ORDERED: PROPOFOL 20 ML ONE (12:30)
== END 2023-12-22 15:35 | disposition home or self-care (01) ==
LOC: SDC 09:32
PROVIDERS: ATTEND Internal Medicine Cardiovascular Disease
PROC: 0JPT0PZ Removal of Cardiac Rhythm Related Device from Trunk Subcutaneous Tissue and Fascia, Open Approach (ICD-10-PCS; principal; 2023-12-22)
PROC: 0JH609Z Insertion of Cardiac Resynchronization Defibrillator Pulse Generator into Chest Subcutaneous Tissue and Fascia, Open Approach (ICD-10-PCS; 2023-12-22)
DX: Z45.02 Encounter for adjustment and management of automatic implantable cardiac defibrillator (principal); I42.8 Other cardiomyopathies; I44.7 Left bundle-branch block, unspecified; I11.0 Hypertensive heart disease with heart failure; I50.22 Chronic systolic (congestive) heart failure; I25.10 Atherosclerotic heart disease of native coronary artery without angina pectoris; Z79.82 Long term (current) use of aspirin; Z79.899 Other long term (current) drug therapy
CPT/HCPCS: 33264; 93641; C1882; J1100; J2405; J2704

== ENCOUNTER 2024-11-13 08:28 | Outpatient (CLI) | payer OTHER, MEDICAID | END 2024-11-13 08:29 | disposition home or self-care (01) | LOC: RAD 08:28 | PROVIDERS: ATTEND Internal Medicine Critical Care Medicine | DX: R06.00 Dyspnea, unspecified (principal) | CPT/HCPCS: 71046 ==

== ENCOUNTER 2024-11-19 09:31 | Inpatient (IN) | payer OTHER, MEDICAID ==
[2024-11-19] MEDS ORDERED: Dextrose 50% Abboject 50 ML SYRINGE SLOW IVP PRN (12:04)
[2024-11-19] MEDS ORDERED: Acetaminophen 325 MG TAB PO PRN (12:04)
[2024-11-19] MEDS ORDERED: Calcium Carbonate 500 MG ChewTAB PO PRN (12:04)
[2024-11-19] MEDS ORDERED: Ondansetron PF 4 MG/2 ML Vial IVP PRN (12:04)
[2024-11-19] MEDS ORDERED: Glucagon 1 MG/ML KIT IM PRN (12:04)
[2024-11-19] MEDS ORDERED: Senokot S 8.6-50 MG TAB PO PRN (12:04)
[2024-11-19] MEDS: Furosemide 40 MG (4 mL) VIAL SLOW IVP SCH (13:38)
[2024-11-19] MEDS: Famotidine 20 MG TAB PO SCH (20:33)
[2024-11-19] MEDS: Melatonin 3 MG TAB PO PRN (20:33)
[2024-11-20] MEDS: Ipratropium Bromide 2.5 ml Neb NEB SCH (00:31)
[2024-11-20 05:45] LABS: #Basophils Less than 0.03 10x3/uL (0.0-0.2); #Eosinophils Less than 0.03 10x3/uL (0.0-0.7); #Monocytes 0.50 10x3/uL (0.11-0.59); #Neutrophils 13.15 10x3/uL (1.40-6.50); %Basophils 0.1 % (0.0-1.0); %Eosinophils 0.0 % (0.0-10.0); %Lymphocytes 8.0 % (21.0-51.0); %Monocytes 3.3 % (0.0-10.0); %Neutrophils 88.1 % (42.0-75.0); Hematocrit 42.3 % (36.0-47.0); Hemoglobin 14.0 g/dL (12.0-16.0); Mean Corpuscular Hemoglobin 32.6 pg (27.0-31.0); Mean Corpuscular Volume 98.6 fL (78.0-98.0); Platelet Count 132 10x3/uL (130-400); Red Blood Cell (RBC) Count 4.29 mill/uL (4.20-5.40); White Blood Cell (WBC) Count 14.93 10x3/uL (4.8-10.8)
[2024-11-20 06:19] LABS: Anion Gap 17 mmol/L (10-20); BUN (Urea Nitrogen) 34 mg/dL (9.8-20.1); Calc. Creatinine Clearance 30 mL/min (70-130); Calcium 9.5 mg/dL (7.8-10.44); Carbon Dioxide 23 mmol/L (23-31); Chloride 104 mmol/L (98-107); Glucose 141 mg/dL (83-110); Potassium 4.0 mmol/L (3.5-5.1); Sodium 140 mmol/L (136-145)
[2024-11-20] MEDS ORDERED: Furosemide 40 MG TAB PO SCH (07:30)
[2024-11-20] MEDS ORDERED: Pantoprazole 40 MG DR.TAB PO SCH (09:00)
[2024-11-20] MEDS: cefTRIAXone\\ROCEPHIN 1 GM in Sodium Chloride 0.9% 100 ML IVPB SCH (10:00)
[2024-11-20] MEDS: Azithromycin 500 MG in Sodium Chloride 0.9% 250 ML 250 ML IVPB SCH (10:01)
[2024-11-20] MEDS: Enoxaparin 30 MG (0.3 mL) SYRINGE SC SCH (10:02)
[2024-11-20] MEDS: Aspirin 81 mg Enteric Coated Tablet PO SCH (10:02)
[2024-11-20] MEDS: Furosemide 20 MG TAB PO SCH (10:02)
[2024-11-20] MEDS: Ferrous Gluconate 324 MG TAB PO SCH (10:34)
[2024-11-21 04:33] LABS: #Basophils Less than 0.03 10x3/uL (0.0-0.2); #Eosinophils Less than 0.03 10x3/uL (0.0-0.7); #Monocytes 0.77 10x3/uL (0.11-0.59); #Neutrophils 14.34 10x3/uL (1.40-6.50); %Basophils 0.1 % (0.0-1.0); %Eosinophils 0.1 % (0.0-10.0); %Lymphocytes 6.4 % (21.0-51.0); %Monocytes 4.7 % (0.0-10.0); %Neutrophils 88.1 % (42.0-75.0); Hematocrit 42.5 % (36.0-47.0); Hemoglobin 13.9 g/dL (12.0-16.0); Mean Corpuscular Hemoglobin 33.2 pg (27.0-31.0); Mean Corpuscular Volume 101.4 fL (78.0-98.0); Platelet Count 151 10x3/uL (130-400); Red Blood Cell (RBC) Count 4.19 mill/uL (4.20-5.40); White Blood Cell (WBC) Count 16.26 10x3/uL (4.8-10.8)
[2024-11-21 04:54] LABS: Anion Gap 19 mmol/L (10-20); BUN (Urea Nitrogen) 38 mg/dL (9.8-20.1); Calc. Creatinine Clearance 29 mL/min (70-130); Calcium 9.5 mg/dL (7.8-10.44); Carbon Dioxide 22 mmol/L (23-31); Chloride 104 mmol/L (98-107); Glucose 139 mg/dL (83-110); Potassium 4.7 mmol/L (3.5-5.1); Sodium 140 mmol/L (136-145)
[2024-11-22 05:46] LABS: Anion Gap 14 mmol/L (10-20); BUN (Urea Nitrogen) 35 mg/dL (9.8-20.1); Calc. Creatinine Clearance 32 mL/min (70-130); Calcium 8.8 mg/dL (7.8-10.44); Carbon Dioxide 24 mmol/L (23-31); Chloride 109 mmol/L (98-107); Glucose 110 mg/dL (83-110); Potassium 4.3 mmol/L (3.5-5.1); Sodium 143 mmol/L (136-145)
[2024-11-22 06:32] LABS: #Basophils Less than 0.03 10x3/uL (0.0-0.2); #Eosinophils Less than 0.03 10x3/uL (0.0-0.7); #Monocytes 0.54 10x3/uL (0.11-0.59); #Neutrophils 8.01 10x3/uL (1.40-6.50); %Basophils 0.1 % (0.0-1.0); %Eosinophils 0.0 % (0.0-10.0); %Lymphocytes 9.1 % (21.0-51.0); %Monocytes 5.7 % (0.0-10.0); %Neutrophils 84.7 % (42.0-75.0); Hematocrit 39.4 % (36.0-47.0); Hemoglobin 13.1 g/dL (12.0-16.0); Mean Corpuscular Hemoglobin 32.8 pg (27.0-31.0); Mean Corpuscular Volume 98.5 fL (78.0-98.0); Platelet Count 134 10x3/uL (130-400); Red Blood Cell (RBC) Count 4.00 mill/uL (4.20-5.40); White Blood Cell (WBC) Count 9.46 10x3/uL (4.8-10.8)
[2024-11-22] MEDS: predniSONE 20 MG TAB PO SCH (08:40)
[2024-11-22 12:16] VITALS: BP 128/69; TEMP 98
[2024-11-23] MEDS ORDERED: Enoxaparin 40 MG (0.4 mL) SYRINGE SC SCH (09:00)
== END 2024-11-22 15:52 | disposition home health service (06) | DRG 193 ==
LOC: 2NO 10:23
PROVIDERS: ADMIT Family Medicine; ATTEND Family Medicine
DX: J18.9 Pneumonia, unspecified organism (principal); J96.21 Acute and chronic respiratory failure with hypoxia; J44.0 Chronic obstructive pulmonary disease with (acute) lower respiratory infection; I13.0 Hypertensive heart and chronic kidney disease with heart failure and stage 1 through stage 4 chronic kidney disease, or unspecified chronic kidney disease; I25.5 Ischemic cardiomyopathy; I27.20 Pulmonary hypertension, unspecified; E11.22 Type 2 diabetes mellitus with diabetic chronic kidney disease; I25.10 Atherosclerotic heart disease of native coronary artery without angina pectoris; D50.9 Iron deficiency anemia, unspecified; N18.30 Chronic kidney disease, stage 3 unspecified; E87.6 Hypokalemia; Z99.81 Dependence on supplemental oxygen; Z86.73 Personal history of transient ischemic attack (TIA), and cerebral infarction without residual deficits; Z98.890 Other specified postprocedural states; Z95.1 Presence of aortocoronary bypass graft; Z95.5 Presence of coronary angioplasty implant and graft; Z90.49 Acquired absence of other specified parts of digestive tract; Z98.51 Tubal ligation status; Z87.891 Personal history of nicotine dependence; Z95.810 Presence of automatic (implantable) cardiac defibrillator; I50.9 Heart failure, unspecified; E78.00 Pure hypercholesterolemia, unspecified; Z88.5 Allergy status to narcotic agent; Z79.84 Long term (current) use of oral hypoglycemic drugs; Z79.51 Long term (current) use of inhaled steroids; Z79.82 Long term (current) use of aspirin; Z79.02 Long term (current) use of antithrombotics/antiplatelets; Z79.899 Other long term (current) drug therapy
CPT/HCPCS: 36415; 36416; 71045; 80048; 80053; 82805; 83605; 83880; 84484; 85025; 87040; 93005; 94640; 96374; J0456; J0696; J1650; J1815; J1940; J2919; J7050; J7512; J7620; J7644

== ENCOUNTER 2024-12-19 09:11 | Outpatient (CLI) | payer OTHER, MEDICAID | END 2024-12-19 09:12 | disposition home or self-care (01) | LOC: RAD 09:11 | PROVIDERS: ATTEND Internal Medicine Critical Care Medicine | DX: R06.00 Dyspnea, unspecified (principal) | CPT/HCPCS: 71046 ==